=== PATIENT | female | born 1990 | race Hispanic/Latino ===

== ENCOUNTER 2023-11-07 20:42 | Emergency (ER) | payer OTHER ==
[~2023-11-07] VITALS: Ht 162.6 cm; Wt 77.1 kg
[2023-11-07 20:57] VITALS: BP 133/65; PULSE 74; RESP 18; TEMP 99.3
[2023-11-07] MEDS: DiphenhydrAMINE HCL 25 MG/10 ML ELIXIR UDCUP PO ONE (21:16)
[2023-11-07] MEDS: prednisoLONE 15 MG/5 ML SOLN PO STA (21:16)
[2023-11-07] MEDS ORDERED: PRED10TA23 PO (21:21)
[2023-11-07] MEDS ORDERED: CEPH500B PO (21:21)
== END 2023-11-07 21:44 | disposition home or self-care (01) ==
LOC: EDH 20:42
DX: L25.9 Unspecified contact dermatitis, unspecified cause (principal); Z79.2 Long term (current) use of antibiotics; Z79.899 Other long term (current) drug therapy
CPT/HCPCS: 81025

== ENCOUNTER 2024-07-02 11:30 | Observation (INO) | payer OTHER ==
[~2024-07-02] VITALS: Ht 162.6 cm; Wt 84.1 kg
[~2024-07-02 11:30] MED LIST: CEPH500B PO; PRED10TA23 PO
--- NOTE | 2024-07-02 11:40 | ERN ---
ED Note History of Present Illness Stated Complaint: LOWER ABD PAIN Chief Complaint: Abdominal Pain Time Seen by MD: 11:31 Dictation: PATIENT IS A 33-YEAR-OLD FEMALE COMING IN TODAY WITH COMPLAINTS OF RIGHT ADNEXAL/PELVIC PAIN SHE HAS HAD THAT HAS BEEN COLICKY ACHY FOR THE LAST THREE DAYS. SHE HAS HAD NAUSEA WITHOUT VOMITING NO FEVER NO CHILLS NO CHANGE IN URINATION. STATES HER LMP WAS AT THE END OF MAY. STATES SHE DOES HAVE A HISTORY OF OVARIAN CYST PATIENT OF DR. GOKUL Terrell HAS NOT BEEN TO SEE HER. Allergies: Coded Allergies: No Known Allergies (Unverified Allergy, Unknown, 11/07/23) Home Meds Active Scripts Cephalexin Monohydrate (Keflex) 500 Mg Cap, 500 MG PO BID for 7 Days, #14 CAP Prov:MICHELE SPENCE MD 11/07/23 Prednisone (Prednisone) 10 Mg Tab.ds.pk, 10 MG PO DAILY for 7 Days, #7 TAB Prov:MICHELE SPENCE MD 11/07/23 Past Medical History Past Medical History: No Pertinent History Surgical History: None History: Not Applicable LMP: June 11, 2024 : 1 Para: 1 RN Note Reviewed/Agreed w/PFSH: Yes Review of System Dictation CONSTITUTIONAL: NEGATIVE EXCEPT FOR HPI HEAD/FACE: NEGATIVE EXCEPT FOR HPI EENT: NEGATIVE EXCEPT FOR HPI RESPIRATORY: NEGATIVE EXCEPT FOR HPI GASTROINTESTINAL/ABDOMINAL: NEGATIVE EXCEPT FOR HPI RIGHT ADNEXAL/PELVIC PAIN WITH NAUSEA GENITOURINARY: NEGATIVE EXCEPT FOR HPI MUSCULOSKELETAL: NEGATIVE EXCEPT FOR HPI INTEGUMENTARY: NEGATIVE EXCEPT FOR HPI NEUROLOGICAL/PSYCH: NEGATIVE EXCEPT FOR HPI HEMATOLOGIC/LYMPHATIC: NEGATIVE EXCEPT FOR HPI ALL SYSTEMS NEGATIVE, EXCEPT NOTED ABOVE. 13 POINT REVIEW OF SYSTEMS ASSESSED AND ALL NEGATIVE EXCEPT FOR ABOVE. Initial Vital Sign VS Vital Signs Date Time Temp Pulse Resp B/P (MAP) Pulse Ox O2 Delivery O2 Flow Rate FiO2 07/02/24 11:34 98.1 65 16 109/67 96 Room Air 0 07/02/24 13:34 21 Physical Exam Dictation VITAL SIGNS REVIEWED GENERAL APPEARANCE: ALERT, ORIENTED X 3, MODERATE ACUTE DISTRESS, WELL DEVELOPED, NOURISHED. HEAD AND FACE: NON-TRAUMATIC. EYES: PERRL, PINK CONJUNCTIVAS, EYELID NO TRAUMA, ANTERIOR CHAMBER WITH ARCUS SENILIS. EARS: PINNAS INTACT AND NO SIGNS OF TRAUMA OR ERYTHEMA EAR CANALS CLEAR AND NO DISCHARGE TM NO ERYTHEMA NOSE: NO DISCHARGE, NO BLEEDING. OROPHARYNX: MOUTH NORMAL, TONGUE PINK, PHARYNX CLEAR,NO ERYTHEMA, TONSILS NO EXUDATES, NO ABSCESSES NOTED, MUCOUS MEMBRANE MOIST NECK: SUPPLE, NON-TENDER, NO THYROMEGALY, NO MASSES, NO JVD, NO BRUITS BREAST:DEFERRED CHEST:NO TENDERNESS, NO CREPITUS, NO PARADOXICAL MOVEMENT, NO RETRACTIONS LUNGS:CLEAR, WELL-VENTILATED, SYMMETRIC, NO RALES, NO WHEEZING, NO RHONCHI, NO STRIDOR, GOOD BREATH SOUNDS BILATERALLY HEART: REGULAR RATE, REGULAR RHYTHM, NO MURMUR, NO GALLOPS VASCULAR: NO PERIPHERAL EDEMA, ABDOMEN: SOFT, POSITIVE BOWEL SOUNDS, NONDISTENDED, NO GUARDING MILD RIGHT ADNEXAL/PELVIC PAIN TENDERNESS. REBOUND, NO REBOUND, NO MASSES NO HEPATOMEGALY, NO SPLENOMEGALY, NO FINNEY'S SIGN, NO HERNIAS. RECTAL: DEFERRED GENITAL: DEFERRED NEUROLOGICAL: NORMAL SPEECH, MOTOR FUNCTION INTACT, SENSORY FUNCTION INTACT MUSCULOSKELETAL: NECK NONTENDER, FULL RANGE OF MOTION, BACK NONTENDER, FULL RANGE OF MOTION, EXTREMITIES: NONTENDER, FULL RANGE OF MOTION SKIN: COLOR PINK, DRY, NO TURGOR, NO RASH, NO LACERATIONS, NO ABRASIONS, NO CONTUSIONS. LYMPHATIC: DEFERRED Results (Laboratory/Radiology) Laboratory/Radiology Laboratory Tests Test 07/02/24 11:49 07/02/24 12:11 Urine Color COLORLESS (YELLOW) Urine Appearance CLEAR (CLEAR) Urine pH 5.5 (5.0-8.0) Urine Specific [place] 1.005 (1.001-1.031) Urine Protein 20 mg/dL (NEGATIVE) H Urine Glucose (UA) NEGATIVE mg/dL (NEGATIVE) Urine Ketones NEGATIVE mg/dL (NEGATIVE) Urine Occult Blood NEGATIVE (NEGATIVE) Urine Nitrate NEGATIVE (NEGATIVE) Urine Bilirubin NEGATIVE mg/dL (NEGATIVE) Urine Urobilinogen 0.2 mg/dL (0.2-1.0) Urine Leukocyte Esterase NEGATIVE Ones[place]/uL Urine RBC 0-1 /HPF (0-1) Urine WBC 2-5 /HPF (0-1) H Urine Squamous Epithelial Cells RARE /HPF (0-2) Urine Bacteria None /HPF (None Seen) Urine HCG, Qualitative NEGATIVE (NEGATIVE) White Blood Count 8.9 K/uL (4.8-10.8) Red Blood Count 4.21 MIL/uL (4.00-5.50) Hemoglobin 13.1 g/dL (12.0-16.0) Hematocrit 38.9 % (36-48) Mean Corpuscular Volume 92.4 fL (79-99) Mean Corpuscular Hemoglobin 31.1 pg (27.0-33.0) Mean Corpuscular Hemoglobin Concent 33.7 g/dL (32.0-36.0) Red Cell Distribution Width 11.9 % (11.0-15.5) Platelet Count 188 K/uL (130-400) Mean Platelet Volume 11.2 fL (7.5-10.5) H Immature Granulocyte % (Auto) 0.3 % (0-1) Neutrophils (%) (Auto) 68.0 % (40.0-77.0) Lymphocytes (%) (Auto) 22.4 % (21.0-51.0) Monocytes (%) (Auto) 8.3 % (3.0-13.0) Eosinophils (%) (Auto) 0.6 % (0.0-8.0) Basophils (%) (Auto) 0.4 % (0.0-5.0) Neutrophils # (Auto) 6.1 K/uL (1.8-7.7) Lymphocytes # (Auto) 2.0 K/uL (1.0-4.8) Monocytes # (Auto) 0.7 K/uL (0.1-1.0) Eosinophils # (Auto) 0.05 K/uL (0.00-0.70) Basophils # (Auto) 0.04 K/uL (0.00-0.20) Absolute Immature Granulocyte (auto 0.03 K/uL (0-1) Nucleated Red Blood Cells 0.0 % (0.0-0.19) Sodium Level 138 mmol/L (136-145) Potassium Level 4.8 mmol/L (3.5-5.1) Chloride Level 105 mmol/L (101-111) Carbon Dioxide Level 24 mmol/L (21-32) Blood Urea Nitrogen 24 mg/dL (7-18) H Creatinine 2.8 mg/dL (0.5-1.0) H Glomerular Filtration Rate Calc 22 mL/min (>90) Random Glucose 86 mg/dL (70-105) Total Calcium 8.9 mg/dL (8.5-10.1) 1232/RIGHT OVARIAN CYST, 18 X 14 X 12. Signed PATIENT: MADINA HERRING MR#: [id number] : 1990 SEX: F AGE: 33 LOCATION: [facility] ORDER 1350 STATUS: REG ER REPORT#: [id number] SERVICE 1340 REASON: RIGHT LOWER ABDOMINAL PAIN. KNOWN OVARIAN CYST SEE ULTRASOUND REPORT ORDERING PHYSICIAN: NEISHA DURAN NP PROCEDURE: ABD PEL WO - CT ABDOMEN/PELVIS W/O CONTRAST CT ABDOMEN/PELVIS W/O CONTRAST HISTORY: Right lower abdominal pain COMPARISON: 03/09/2012 TECHNIQUE: Multiple sequential axial images of the abdomen and pelvis were obtained from the dome of the diaphragm through symphysis pubis. Patient was not given contrast through intravenous route. Oral contrast was not given. FINDINGS: No pleural effusion is seen bilaterally. There is no evidence of parenchymal disease or pulmonary nodule of the visualized lower lungs. Degenerative changes of the thoracolumbar spine are present. The heart is not enlarged. The liver, spleen, adrenal glands and pancreas are unremarkable. There is no evidence of hydronephrosis bilaterally. No evidence of renal stone is seen. Fecal material is seen in the colon. There are normal size retroperitoneal and mesenteric lymph nodes. No ascites is seen. No CT evidence of acute appendicitis is seen. There is right hemorrhagic ovarian cyst measuring 17 mm. Pelvic sidewalls are symmetric bilaterally. Bladder is well distended without wall thickening. IMPRESSION: 1. No acute findings. Labs Reviewed?: Yes ED Course ED Course Orders Procedure Category Date Status Time Cbc With Differential LAB 07/02/24 Complete 11:35 ,Urine Test LAB 07/02/24 Complete 11:35 Urinalysis Profile LAB 07/02/24 Complete 11:35 Us Pelvic Non-Ob US 07/02/24 Resulted Limited 11:35 Basic Metabolic Panel LAB 07/02/24 Complete 11:37 Morphine 2mg Syg PHA 07/02/24 Complete (Morphine 2mg Syg) 12:00 Ondansetron 4mg Inj PHA 07/02/24 Complete (Zofran 4mg Inj) 12:00 0.9%Nacl 1000ml (Ns PHA 07/02/24 Complete 1000ml) 13:00 Morphine 2mg Syg PHA 07/02/24 Complete (Morphine 2mg Syg) 13:00 Ondansetron 4mg Inj PHA 07/02/24 Complete (Zofran 4mg Inj) 13:00 Ct Abdomen/Pelvis W/O CT 07/02/24 Resulted Contrast 13:48 0.9%Nacl 1000ml (Ns PHA 07/02/24 Complete 1000ml) 16:00 Ketorolac PHA 07/02/24 Complete Tromethamine 30mg/Ml 18:00 Admit Orders ADM 07/02/24 Transmitted 19:09 Vital Signs Every 4 CPOE 07/02/24 Transmitted Hours 19:10 I&O Q Shift CPOE 07/02/24 Transmitted 19:10 Activity: Ad Jessie CPOE 07/02/24 Transmitted 19:10 Renal Nondialysis Diet DIET 07/03/24 Transmitted Breakfast O2 Order RT 07/02/24 Transmitted 19:10 Cbc Without LAB 07/03/24 Verified Differential 04:00 Basic Metabolic Panel LAB 07/03/24 Verified 04:00 Magnesium LAB 07/03/24 Verified 04:00 Phosphorus LAB 07/03/24 Verified 04:00 Thyroid Stimulating LAB 07/03/24 Verified Hormone 04:00 Lr 1000ml @____Ml/Hr PHA 07/02/24 Transmitted 19:30 Famotidine 20mg Tab PHA 07/02/24 Transmitted (Pepcid 20mg Tab) 21:00 Tylenol 650mg Po Q6hr PHA 07/02/24 Transmitted Fever 19:30 Tylenol 650mg Pr PHA 07/02/24 Transmitted Q6hrs Prn 19:30 [place] 5/325 Po Q6hrs PHA 07/02/24 Transmitted 19:30 Lactulose 30ml Q6hrs PHA 07/02/24 Transmitted PRN 19:30 Colace 100mg Po Daily PHA 07/02/24 Transmitted 19:30 Restoril 15mg Po Hs PHA 07/02/24 Transmitted PRN 19:30 Zofran 4mg Ivp Q6hrs PHA 07/02/24 Transmitted PRN 19:30 Labetalol 10mg Ivp PHA 07/02/24 Transmitted Q2hrs Prn 19:30 Heparin 5,000 Unit PHA 07/03/24 Transmitted Vial (Heparin 5,000 U 09:00 Current Medications Medications (Trade) Dose Ordered Sig/Keenan Route PRN Reason Start Time Stop Time Status Last Admin Dose Admin Acetaminophen (TYLenol 325MG TAB) 650 mg Q6H PRN PO FEVER/MILD PAIN LEVEL 1-3 07/02/24 19:30 08/01/24 19:29 UNV Acetaminophen (TYLenol 650MG SUPPOSITORY) 650 mg Q6H PRN RC FEVER / MILD PAIN 1-3 IF NPO 07/02/24 19:30 08/01/24 19:29 UNV Acetaminophen/ Hydrocodone Bitart (NORco 5/325MG) 1 tab Q6H PRN PO MILD PAIN (1-3) 07/02/24 19:30 07/07/24 19:29 UNV Docusate Sodium (COLace 100MG CAP) 100 mg BID PRN PO CONSTIPATION 07/02/24 19:30 08/01/24 19:29 UNV Famotidine (Pepcid 20mg Tab) 20 mg BID PO 07/02/24 21:00 08/01/24 20:59 UNV Heparin Sodium (Porcine) (HEParin 5,000 UNIT VIAL) 5,000 unit Q12H SQ 07/03/24 09:00 08/02/24 08:59 UNV Ketorolac Tromethamine (toRADol) 30 mg ONCE ONCE IVP 07/02/24 18:00 07/02/24 18:01 DC 07/02/24 17:42 Labetalol HCl (TRANdate 20MG SYG) 10 mg Q2H PRN IV SBP GREATER THAN 160 07/02/24 19:30 08/01/24 19:29 UNV Lactated Ringer's 1,000 ml @ 100 mls/hr Q10H IV 07/02/24 19:30 08/01/24 19:29 UNV Lactulose (Constulose 20gm/ 30ml Udcup) 20 gm Q6H PRN PO CONSTIPATION 07/02/24 19:30 08/01/24 19:29 UNV Morphine Sulfate (morPHINE 2MG SYG) 2 mg ONCE ONCE IVP 07/02/24 12:00 07/02/24 12:01 DC 07/02/24 11:47 Morphine Sulfate (morPHINE 2MG SYG) 2 mg ONCE ONCE IVP 07/02/24 13:00 07/02/24 13:03 DC 07/02/24 13:47 Ondansetron HCl (zoFRAN 4MG INJ) 4 mg ONCE ONCE IVP 07/02/24 12:00 07/02/24 12:01 DC 07/02/24 11:47 Ondansetron HCl (zoFRAN 4MG INJ) 4 mg ONCE ONCE IVP 07/02/24 13:00 07/02/24 13:03 DC 07/02/24 13:46 Ondansetron HCl (zoFRAN 4MG INJ) 4 mg Q6H PRN IVP NAUSEA/VOMITING 07/02/24 19:30 08/01/24 19:29 UNV Sodium Chloride 1,000 ml @ 0 mls/hr ONCE ONCE IV 07/02/24 13:00 07/02/24 13:03 DC 07/02/24 13:46 Sodium Chloride 1,000 ml @ 0 mls/hr ONCE ONCE IV 07/02/24 16:00 07/02/24 16:01 DC 07/02/24 17:22 Temazepam (restORIL 15 MG CAP) 15 mg HS PRN PO INSOMNIA/SLEEP 07/02/24 19:30 08/01/24 19:29 UNV Vital Signs Date Time Temp Pulse Resp B/P (MAP) Pulse Ox O2 Delivery O2 Flow Rate FiO2 07/02/24 17:31 98.8 57 14 123/74 96 Room Air* 0 21 07/02/24 13:34 98.1 68 16 110/66 98 Room Air* 0 21 07/02/24 11:34 98.1 65 16 109/67 96 Room Air 0 1250/SPOKE WITH PATIENT AT LENGTH REGARDING HER ACUTE KIDNEY INJURY SHE HAD LABS FROM HER DOCTOR IN [place] FROM MARCH 2024 AND IT SHOWS HE HAS A GFR OF 88%. GFR TODAY IS 22 SHE DENIES ANY HEMATEMESIS HEMATOCHEZIA HEMOPTYSIS EXCESSIVE VOMITING DIARRHEA DIURETICS. SHE STATES SHE HAS BEEN FEELING FATIGUED FOR THE LAST TWO WEEKS. SHE HAS ALSO HAD SOME UNEXPLAINED WEIGHT GAIN. SHE AGREED TO BE ADMITTED TO THE [facility]OSP[facility] FOR [facility] AND NEPHROLOGY FOLLOW UP 1350/SPOKE WITH HOSPITALIST, DR. ECHEVERRIA REGARDING ADMISSION. HE STATES IN LIGHT OF THE POSSIBLE HEMORRHAGIC OVARIAN CYST AND THE [facility], SINCE WE HAVE NO BE IN CHAIR COVERAGE IF PATIENT WOULD BE IT NEED TO BE ADMITTED TO A HIGHER LEVEL OF CARE FOR OB SERVICES. 1455/SPOKE WITH REVIEWED LABS CT AND ULTRASOUND FINDINGS. SHE SAID THIS IS A OVULATORY CYST SHE SAID IT IS INCONSEQUENTIAL AND DOES NOT REQUIRED ANYTHING OTHER THAN OUTPATIENT MANAGEMENT AND SHE CAN FOLLOW UP IN HER OFFICE. SHE DOES NOT BELIEVE SHE NEEDS TO BE TRANSFERRED TO A HIGHER LEVEL OF CARE AND THIS COULD BE MANAGED P.R.N. ANALGESIA 148/DR ECHEVERRIA REPAGED FOR ADMISSION, RECOMMENDED PATIENT BE TRANSFERRED TO A HIGHER LEVEL OF CARE WITH ALARM SIGNAL OPERATOR SUPPORT [facility] FOR [facility] 1640/SPOKE WITH Rhea HERNANDEZ material control supervisor and we will follow up for transfer to higher level of care 1915/SPOKE WITH OLY LARA HOSPITALIST AND REVIEWED CT ULTRASOUND AND LABS AND SHE AGREED TO ADMIT PATIENT. SHE IS AWARE THAT I SPOKE WITH THE ALARM SIGNAL OPERATOR DOCTOR AND THE CYST DID NOT REPRESENT AN EMERGENT CONDITION. Medical Decision Making MDM MDM: DIFFERENTIAL DIAGNOSIS: APPENDICITIS/OVARIAN CYST/UTI/ECTOPIC /ELECTROLYTE IMBALANCE/DEHYDRATION RATIONALE: TESTS CONSIDERED AND ORDERED SECONDARY TO SHARED DECISION MAKING INCLUDE: LABS, AND RADIOLOGY PREVIOUS OUTSIDE RECORDS REVIEWED: OLD ER VISITS. RISK OF COMPLICATION AND/OR MORBIDITY OR MORTALITY OF PATIENT MANAGEMENT: [id number] MEDICATIONS-PER MEDICATION RECONCILIATION NEED FOR HOSPITALIZATION: PATIENT DOES MEET CRITERIA FOR HOSPITALIZATION. WE WILL NEED REHYDRATION AND NEPHROLOGY CONSULTATION FOR [facility] NEED FOR EMERGENCY MAJOR/MINOR SURGERY: NO THERE ARE NO SOCIAL CONCERNS WITH THIS PATIENT. PRESCRIPTION DRUG MANAGEMENT PRESCRIPTIONS WILL INCLUDE SYMPTOMATIC CARE PATIENT'S PRIOR EXTERNAL MEDICAL RECORDS FROM OTHER ER VISITS WERE REVIEWED BY ME INDICATED. PRIOR TESTING AND RESULTS FROM PREVIOUS VISITS WERE REVIEWED. PRIOR TESTS WERE TAKEN INTO ACCOUNT WITH MEDICAL DECISION MAKING AND RESOURCE UTILIZATION, INDEPENDENT HISTORIAN/HISTORIANS WERE USED TO OBTAIN COMPLETE MEDICAL HISTORY. I INDEPENDENTLY INTERPRETED THE TEST THAT WERE PERFORMED, RESULTS WERE REVIEWED BY ME AND CONSIDERED FINDINGS ON RADIOLOGY IF ORDERED. MEDICAL MANAGEMENT AND EXAMINATION INTERPRETATION DISCUSSIONS WERE HAD BY ME WITH OTHER QUALIFIED HEALTHCARE PROFESSIONALS INDICATED FOR THE PATIENT'S CARE. DX & DISP Disposition: Inpatient Decision to Admit Time: 12:56 Departure Impression: Primary Impression: Acute kidney injury Additional Impressions: Dehydration, Right ovarian cyst Condition: Stable Referrals: SELF,REFERRAL (PCP) Time of Disposition: 12:56 I have reviewed the case, and I agree with, Diagnosis and Plan NEISHA DURAN NP July 02, 2024 11:40
[2024-07-02] MEDS: ondanSETRON 4MG INJ IVP ONE ×2 (11:47→13:46)
[2024-07-02] MEDS: morPHINE 2 MG SYG IVP ONE ×2 (11:47→13:47)
[2024-07-02 12:07] LABS: APPEARANCE,URINE CLEAR (CLEAR); BILIRUBIN,URINE NEGATIVE (NEGATIVE); COLOR,URINE COLORLESS (YELLOW); GLUCOSE, URINE (UA) NEGATIVE (NEGATIVE); KETONES,URINE NEGATIVE (NEGATIVE); LEUKOCYTE ESTERASE ,URINE NEGATIVE Leu/uL (NEGATIVE); NITRATE,URINE NEGATIVE (NEGATIVE); OCCULT BLOOD,URINE NEGATIVE (NEGATIVE); PH,URINE 5.5 (5.0-8.0); PROTEIN,URINE 20 mg/dL (NEGATIVE); UROBILINOGEN,URINE 0.2 mg/dL (0.2-1.0)
[2024-07-02 12:09] LABS: HCG,QUALITATIVE URINE NEGATIVE (NEGATIVE)
[2024-07-02 12:13] LABS: ADD UA MICROSCOPIC YES
[2024-07-02 12:23] LABS: BASOPHILS # (AUTO) 0.04 K/uL (0.00-0.20); BASOPHILS % (AUTO) 0.4 % (0.0-5.0); EOSINOPHILS # (AUTO) 0.05 K/uL (0.00-0.70); EOSINOPHILS % (AUTO) 0.6 % (0.0-8.0); HEMATOCRIT 38.9 % (36-48); IMMATURE GRANULOCYTE ABSOLUTE 0.03 K/uL (0-1); LYMPHOCYTES % (AUTO) 22.4 % (21.0-51.0); MEAN CORPUSCULAR HEMOGLOBIN 31.1 pg (27.0-33.0); MEAN CORPUSCULAR HGB CONC 33.7 g/dL (32.0-36.0); MEAN CORPUSCULAR VOLUME 92.4 fL (79-99); MONOCYTES # (AUTO) 0.7 K/uL (0.1-1.0); MONOCYTES % (AUTO) 8.3 % (3.0-13.0); NEUTROPHILS # (AUTO) 6.1 K/uL (1.8-7.7); PLATELET COUNT (AUTO) 188 K/uL (130-400); RED BLOOD CELL COUNT(AUTO) 4.21 MIL/uL (4.00-5.50); RED CELL DISTRIBUTION WIDTH 11.9 % (11.0-15.5); WHITE BLOOD COUNT (AUTO) 8.9 K/uL (4.8-10.8)
[2024-07-02 12:24] LABS: RBC,URINE 0-1 /HPF (0-1); SQUAMOUS EPITHELIAL CELL,UR RARE /HPF (0-2)
[2024-07-02 12:34] LABS: CREATININE 2.8 mg/dL (0.5-1.0); POTASSIUM 4.8 mmol/L (3.5-5.1)
--- NOTE | 2024-07-02 12:41 | HMCIMG ---
US PELVIC NON-OB LIMITED HISTORY: Right adnexal pain COMPARISON: None TECHNIQUE: Transabdominal pelvic ultrasound study was performed. Specific attention is given to the right ovary. FINDINGS: There is complex cystic structure in the right ovary measuring 18 x 14 x 14 mm may be related to hemorrhagic cyst. Right ovary measures 2.5 x 2 x 3.2 cm. Flow is demonstrated in the right ovary. IMPRESSION: 1. There may be right hemorrhagic ovarian cyst measuring 18 x 14 x 14 mm.
[2024-07-02] MEDS: 0.9%NACL 1000ML 1,000 ML IV ONE ×2 (13:46→17:22)
--- NOTE | 2024-07-02 14:05 | NUR ---
PENDING FAMILY TO BRING MEDICATIONS FROM HOME.
--- NOTE | 2024-07-02 14:43 | HMCIMG ---
CT ABDOMEN/PELVIS W/O CONTRAST HISTORY: Right lower abdominal pain COMPARISON: 03/09/2012 TECHNIQUE: Multiple sequential axial images of the abdomen and pelvis were obtained from the dome of the diaphragm through symphysis pubis. Patient was not given contrast through intravenous route. Oral contrast was not given. FINDINGS: No pleural effusion is seen bilaterally. There is no evidence of parenchymal disease or pulmonary nodule of the visualized lower lungs. Degenerative changes of the thoracolumbar spine are present. The heart is not enlarged. The liver, spleen, adrenal glands and pancreas are unremarkable. There is no evidence of hydronephrosis bilaterally. No evidence of renal stone is seen. Fecal material is seen in the colon. There are normal size retroperitoneal and mesenteric lymph nodes. No ascites is seen. No CT evidence of acute appendicitis is seen. There is right hemorrhagic ovarian cyst measuring 17 mm. Pelvic sidewalls are symmetric bilaterally. Bladder is well distended without wall thickening. IMPRESSION: 1. No acute findings. CT was performed with one or more following dose reduction techniques: automated exposure control, adjustment of the mA and kv according to patient's size, or use of a iterative reconstruction technique.
[2024-07-02] MEDS: ketOROlac 30MG VIAL (30MG/ML) IVP ONE (17:42)
--- NOTE | 2024-07-02 19:19 | HP ---
[facility] HISTORY AND PHYSICAL Date of Service: July 02, 2024 Time of Service: 19:19 Attending/supervising physicians: Dr. Finley and Dr. Gómez HISTORY OF PRESENT ILLNESS: Ms. Robbins is a 33-year-old female with a history of migraine headaches and ovarian cyst who presented to [facility] ED for evaluation of a right lower and upper abdominal pain that radiates to the back onset three days. The patient reports he feels colicky and achy. The patient also reported being fatigued for at least two weeks. The patient stated that she had some unexplained weight gain. Patient denies nausea, but denies vomiting, fever, chills, changes in urination. The patient reports that she has been drinking fluids well. She drinks about 3/4 of a gal per day, but has not been eating well due to the nausea. The patient has a history of ovarian cyst and follows with Dr. Renee. WBCs WNL. Remarkable lab results: MPV 11.2. BUN , creatinine 2.8, GFR . 22. UA positive for protein, WBCs 2-5. Urine toxicology is positive for benzos. CT abdomen and pelvis without contrast: Right hemorrhagic ovarian cyst measuring 17mm. No acute findings. Pelvis sonogram: Right hemorrhagic ovarian cyst measuring 8 x 14 x 14 mm. Renal sonogram: Normal sonographic appearance of the kidneys and urinary bladder. The patient has lab work from her doctor in [place] from March 2024 in it showed a GFR of 88. Today's GFR is 22 which prompted ED provider to request patient be admitted to the hospital for further medical management. ED provider reports that he spoke to Dr. Renee who stated that this is a ovulatory cyst, and that it is inconsequential. He reports that she stated that it does not require any other that outpatient management and that the patient can follow up with her in the office. He states that she reported that the patient does not need to be transferred out to a higher level of care and that this could be managed with prn analgesia. In ED the patient received morphine 2 mg x2 doses, Zofran 4 mg IV x2 doses, NS 2 L bolus, and Toradol 30 mg IV. ED provider request patient be admitted with the diagnosis of acute kidney injury, dehydration, and right ovarian cyst. Per chart review: On 02/27/2012 GFR was 85, 03/09/2012 GFR 75, 12/30/2012 GFR 74, 07/27/2013 GFR 96. I assessed the patient at bedside in room number ED 12. The patient appeared comfortable, breathing was even, unlabored, in no distress. She reported that she has taken hydroxyzine and propranolol for headaches since February of last year. Otherwise she denies taking any NSAIDs or any other medications. I informed the patient of labs, diagnostics, and plan of care. She verbalized understanding and is in agreement with the plan. Plan and assessment are listed below. Addendum: Since UA is positive for benzos and the patient reported that she is only taking hydroxyzine and propranolol, the patient was informed that her urine was positive for benzos. She then admitted to taking Xanax from [place] but does not want her family to know because they do not approve it. She also reported that she was taking Tirzepatide 0.75 ml, but stopped last week. Which might explain lying the anorexia and weight gain. REVIEW OF SYSTEMS 12-point ROS reviewed with the patient. All pertinent positives mentioned above. Otherwise negative, noncontributory, non-pertinent. PAST MEDICAL HISTORY: As mentioned above LMP June 11, 2024. 1, para 1. PAST SURGICAL HISTORY: None PAST SOCIAL HISTORY: Patient denied alcohol, tobacco use, illicit drug use. FAMILY HISTORY: Noncontributory Coded Allergies: No Known Allergies (Unverified Allergy, Unknown, 11/07/23) PHYSICAL EXAM GENERAL APPEARANCE: The patient is awake, alert, and oriented, in no acute cardiopulmonary distress. NEUROLOGICAL: Cranial nerves II-XII grossly intact. Motor is 5/5 in bilateral upper and lower extremities proximal to distal. No sensory deficits. HEENT: Face is symmetric. Pupils are equal and reactive. Extraocular movements are intact. NECK: Supple. No JVD. No thyromegaly. No submental, submandibular, pre- /postauricular, occipital or supraclavicular lymphadenopathy. CHEST: Normal chest expansion. No Telemetry. LUNGS: Absence of any rales, rhonchi or any wheezing. CARDIOVASCULAR: Regular. S1 and S2 normal. No appreciable rubs, murmurs or gallops. ABDOMEN: Soft, nontender, and nondistended. There is no rebound, voluntary guarding, or rigidity. : Deferred. No Boyd. EXTREMITIES: Non-edematous and not cyanotic. No clubbing. Good capillary refill. SKIN: No skin breakdown. Vital Sign (Last 24 Hours) 07/02/24 17:31 Temp 98.8 Pulse 57 Resp 14 B/P (MAP) 123/74 Pulse Ox 96 O2 Delivery Room Air* O2 Flow Rate 0 FiO2 21 LABS: Laboratory: Test 07/02/24 12:11 07/02/24 11:49 Range/Units White Blood Count 8.9 4.8-10.8 K/uL Red Blood Count 4.21 4.00-5.50 MIL/uL Hemoglobin 13.1 12.0-16.0 g/dL Hematocrit 38.9 36-48 % Mean Corpuscular Volume 92.4 79-99 fL Mean Corpuscular Hemoglobin 31.1 27.0-33.0 pg Mean Corpuscular Hemoglobin Concent 33.7 32.0-36.0 g/dL Red Cell Distribution Width 11.9 11.0-15.5 % Platelet Count 188 130-400 K/uL Mean Platelet Volume 11.2 H 7.5-10.5 fL Immature Granulocyte % (Auto) 0.3 0-1 % Neutrophils (%) (Auto) 68.0 40.0-77.0 % Lymphocytes (%) (Auto) 22.4 21.0-51.0 % Monocytes (%) (Auto) 8.3 3.0-13.0 % Eosinophils (%) (Auto) 0.6 0.0-8.0 % Basophils (%) (Auto) 0.4 0.0-5.0 % Neutrophils # (Auto) 6.1 1.8-7.7 K/uL Lymphocytes # (Auto) 2.0 1.0-4.8 K/uL Monocytes # (Auto) 0.7 0.1-1.0 K/uL Eosinophils # (Auto) 0.05 0.00-0.70 K/uL Basophils # (Auto) 0.04 0.00-0.20 K/uL Absolute Immature Granulocyte (auto 0.03 0-1 K/uL Nucleated Red Blood Cells 0.0 0.0-0.19 % Sodium Level 138 136-145 mmol/L Potassium Level 4.8 3.5-5.1 mmol/L Chloride Level 105 101-111 mmol/L Carbon Dioxide Level 24 21-32 mmol/L Blood Urea Nitrogen 24 H 7-18 mg/dL Creatinine 2.8 H 0.5-1.0 mg/dL Glomerular Filtration Rate Calc 22 >90 mL/min Random Glucose 86 70-105 mg/dL Total Calcium 8.9 8.5-10.1 mg/dL Urine Color COLORLESS YELLOW Urine Appearance CLEAR CLEAR Urine pH 5.5 5.0-8.0 Urine Specific [place] 1.005 1.001-1.031 Urine Protein 20 H NEGATIVE mg/dL Urine Glucose (UA) NEGATIVE NEGATIVE mg/dL Urine Ketones NEGATIVE NEGATIVE mg/dL Urine Occult Blood NEGATIVE NEGATIVE Urine Nitrate NEGATIVE NEGATIVE Urine Bilirubin NEGATIVE NEGATIVE mg/dL Urine Urobilinogen 0.2 0.2-1.0 mg/dL Urine Leukocyte Esterase NEGATIVE NEGATIVE Onesimo/uL Urine RBC 0-1 0-1 /HPF Urine WBC 2-5 H 0-1 /HPF Urine Squamous Epithelial Cells RARE 0-2 /HPF Urine Bacteria None None Seen /HPF Urine HCG, Qualitative NEGATIVE NEGATIVE DIAGNOSTICS / RADIOLOGY: [ ] ASSESSMENT: Acute kidney injury, GFR 22 Acute on chronic kidney disease, POA, GFR 88 on 03/2024. (02/27/2012 GFR was 85, 03/09/2012 GFR 75, 12/30/2012 GFR 74, 07/27/2013 GFR 96) Anorexia, POA, suspect from Tirzepatide Right hemorrhagic ovarian cyst measuring 8 x 14 x 14 mm, per sono on 07/02/2024, will be managed as out patient per Dr. Renee, OBGYN Benzodiazepine positive screen on UA 07/02/2024 (Takes Xanax from [place]) History of migraine headaches on propranolol and hydroxyzine since 02/2023 Obesity, BMI 31.8 History of anxiety PLAN: Admit to medical floor. Obtain a renal sonogram which was negative. LR at 100 mL/hr. (ED administered NS 2 L.) Monitor renal and liver function. Keep the patient in a euvolemic state. Avoid Nephrotoxic medications. Adjust medications according to renal function. Consult raise drill operator in a.m.. Monitor electrolytes and treat accordingly. Hold home medication hydroxyzine due to in rare cases it has been associated with the acute kidney failure. Hold home medication propranolol due to that it could in directly affect kidneys function by lowering blood pressure, which may reduced blood flow to the kidneys. Hold home medication Tirzepatide due to it having been linked to rare cases of CANDIS, where the kidney sudden lose her ability to filter ways. Education on 1. Informing providers of every medication she is taking. 2. Don't buy [id number] medications from [place] without informing her PCP 1st. 3. Avoid nephrotoxic medications. P.r.n. medications for: Pain management, fever, nausea, vomiting, constipation, hypertension. As needed glucometer sticks. Oxygen as needed to keep SpO2 equal to greater than 92%. Blood pressure checks every 4 hours and as needed. GI and DVT prophylaxis. A.m. labs. Upon discharge follow up with Nephrology for acute on chronic kidney disease and OBGYN for ovarian cyst. ADVANCED CARE PLANNING 1. Which of the following were discussed? Hospice Care - No Therapeutic options - Yes Advance Directives - Yes Other discussions - 2. Discussed with who? Patient 3. Voluntary nature of this service was explained to the patient? Yes 4. Amount of time spent - __ over 45 minutes 5. Reviewed by Physician? (if this service was performed by NPP) Yes I personally spent over 45 minutes of directly and personally managing the patient. I devoted my full attention to the patient during this time, which is separate from time spent on any billable procedures. This includes time spent involved in work directly related to the care of the patient: such as review of prior records, development of treatment plan with patient and as well as nursing, ordered consultants, evaluation of patient's response to treatment, examination of patient, obtaining history from patient, ordering and performing treatments and interventions, ordering and review of laboratory studies, ordering and review of radiographic studies. ATTESTATION BY PHYSICIAN I have seen and examined the patient. I reviewed the documentation, medical decision making, and treatment plan as noted by the mid-level provider above. I agree with the findings and plan of care. JACQUI BUCK [facility] July 02, 2024 19:19
[2024-07-02] MEDS ORDERED: LAbetaLOL 20MG SYG IV PRN (19:30)
[2024-07-02] MEDS ORDERED: doCUSate SODIUM 100 MG CAP PO PRN (19:30)
[2024-07-02] MEDS ORDERED: acetaMINOPHEN 650 MG SUPPOSITORY RC PRN (19:30)
[2024-07-02] MEDS ORDERED: acetaMINOPHEN 325 MG TAB PO PRN (19:30)
[2024-07-02] MEDS ORDERED: LACTULOSE 20 GM/30 ML UDCUP PO PRN (19:30)
[2024-07-02] MEDS: LACTATED RINGERS 1000ML 1,000 ML IV SCH (19:54)
[2024-07-02] MEDS: FAMOTIDINE 20MG TAB PO SCH (19:54)
[2024-07-02 20:00] LABS: AMPHET/METH SCREEN,URINE NEGATIVE (NEGATIVE); BARBITURATE SCREEN, URINE NEGATIVE (NEGATIVE); BENZODIAZEPINES SCREEN,URINE POSITIVE (NEGATIVE); CANNABINOID SCREEN,URINE NEGATIVE (NEGATIVE); COCAINE SCREEN,URINE NEGATIVE (NEGATIVE); OPIATE SCREEN,URINE NEGATIVE (NEGATIVE); PHENCYCLIDINE SCREEN,URINE NEGATIVE (NEGATIVE)
--- NOTE | 2024-07-02 20:01 | HMCIMG ---
ULTRASOUND RENAL COMPLETE INDICATION: Acute kidney injury TECHNIQUE: Routine ultrasound of the kidneys and urinary bladder with grayscale and color Doppler imaging was performed in real-time, and subsequently made available for review. COMPARISON: No prior studies available for comparison. FINDINGS: The right kidney measures 12.0 x 4.8 x 5.5 cm. No abnormal mass demonstrated. No evidence for hydronephrosis or shadowing stone. The left kidney measures 11.8 x 4.5 x 5.1 cm. No abnormal mass demonstrated. No evidence for hydronephrosis or shadowing stone. Urinary bladder appears normal. IMPRESSION: Normal sonographic appearance of the kidneys and urinary bladder.
[2024-07-02] MEDS ORDERED: HYDR-3422 PO (20:08)
[2024-07-02] MEDS ORDERED: PROP40TA7 PO (20:08)
[2024-07-02] MEDS: HYDROcodone/APAP 5/325 1 TAB TABLET PO PRN (20:50)
--- NOTE | 2024-07-02 21:14 | NUR ---
sbar given to lazara frias
[2024-07-02 21:30] VITALS: O2SAT 96
[2024-07-02 21:35] VITALS: BP 110/58; PULSE 58; RESP 19; TEMP 98.3
[2024-07-02 22:33] LABS: HEMATOCRIT 35.4 % (36-48); MEAN CORPUSCULAR HEMOGLOBIN 30.8 pg (27.0-33.0); MEAN CORPUSCULAR HGB CONC 33.1 g/dL (32.0-36.0); MEAN CORPUSCULAR VOLUME 93.2 fL (79-99); RED BLOOD CELL COUNT(AUTO) 3.8 MIL/uL (4.00-5.50); WHITE BLOOD COUNT (AUTO) 7.7 K/uL (4.8-10.8)
[2024-07-02 23:00] LABS: ALBUMIN 3.2 g/dL (3.5-5.0); BILIRUBIN,TOTAL 0.6 mg/dL (0.2-1.0); CREATININE 2.9 mg/dL (0.5-1.0); MAGNESIUM 2.1 mg/dL (1.80-2.40); POTASSIUM 4.1 mmol/L (3.5-5.1); TOTAL PROTEIN, SERUM 6.1 g/dL (6.0-8.3)
[2024-07-03] VITALS (9 sets, daily range): BP systolic 90–118; BP diastolic 47–76; PULSE 51–68; RESP 16–20; TEMP 97.5–98.3; O2SAT 98–100
[2024-07-03] MEDS: HYDROcodone/APAP 5/325 1 TAB TABLET PO ONE (01:21)
[2024-07-03 03:54] LABS: HEMATOCRIT 31.8 % (36-48); MEAN CORPUSCULAR HEMOGLOBIN 31.4 pg (27.0-33.0); MEAN CORPUSCULAR HGB CONC 33.6 g/dL (32.0-36.0); MEAN CORPUSCULAR VOLUME 93.3 fL (79-99); RED BLOOD CELL COUNT(AUTO) 3.41 MIL/uL (4.00-5.50); RED CELL DISTRIBUTION WIDTH 11.9 % (11.0-15.5); WHITE BLOOD COUNT (AUTO) 6.8 K/uL (4.8-10.8)
[2024-07-03 04:12] LABS: HEMOGLOBIN A1C 5.1 % (4.0-6.0)
[2024-07-03 04:18] LABS: CREATININE 2.9 mg/dL (0.5-1.0); PHOSPHORUS 5.1 mg/dL (2.5-4.9); POTASSIUM 4.1 mmol/L (3.5-5.1); THYROID STIMULATING HORMONE 2.21 uIU/mL (0.36-3.74)
[2024-07-03] MEDS ORDERED: ALPR0.25 PO (04:30)
[2024-07-03] MEDS ORDERED: TIRZ2.5P SQ (04:30)
[2024-07-03] MEDS: HYDROcodone/APAP 5/325 1 TAB TABLET PO PRN (08:19)
[2024-07-03] MEDS: HEParin 5,000 UNIT VIAL SQ SCH (09:00)
--- NOTE | 2024-07-03 13:37 | PN ---
[facility] PROGRESS NOTE Date of Service: July 03, 2024 Time of Service: 13:20 SUBJECTIVE: [33-year-old female presented to the emergency department yesterday with pelvic pain. The initial imaging/CT abdomen and pelvis without contrast showed right hemorrhagic ovarian cyst measuring 17 mm, pelvic sonogram right hemorrhagic ovarian cyst and renal sonogram was unremarkable. Her pain has markedly improved on this evaluation. Plan is repeat transvaginal/pelvic ultrasound now. We will continue to monitor her kidney function continue with IV fluids. ] REVIEW OF SYSTEMS 12-point ROS reviewed with the patient. All pertinent positives mentioned above. Otherwise negative, noncontributory, non-pertinent. PHYSICAL EXAM GENERAL APPEARANCE: The patient is awake, alert, and oriented, in no acute cardiopulmonary distress. NEUROLOGICAL: Cranial nerves II-XII grossly intact. Motor is 5/5 in bilateral upper and lower extremities proximal to distal. No sensory deficits. HEENT: Face is symmetric. Pupils are equal and reactive. Extraocular movements are intact. NECK: Supple. No JVD. No thyromegaly. No submental, submandibular, pre- /postauricular, occipital or supraclavicular lymphadenopathy. CHEST: Normal chest expansion. No Telemetry. LUNGS: Absence of any rales, rhonchi or any wheezing. CARDIOVASCULAR: Regular. S1 and S2 normal. No appreciable rubs, murmurs or gallops. ABDOMEN: Soft, nontender, and nondistended. There is no rebound, voluntary guarding, or rigidity. : Deferred. No Boyd. EXTREMITIES: Non-edematous and not cyanotic. No clubbing. Good capillary refill. SKIN: No skin breakdown. Vital Signs (last 8hr) Date Time Temp Pulse Resp B/P (MAP) Pulse Ox O2 Delivery O2 Flow Rate FiO2 07/03/24 08:18 100 Room Air* 0 21 07/03/24 08:00 97.9 53 16 108/71 100 Room Air 21 LABS: Laboratory: Test 07/03/24 03:21 07/02/24 22:17 07/02/24 12:11 07/02/24 11:49 Range/Units White Blood Count 6.8 4.8-10.8 K/uL Red Blood Count 3.41 L 4.00-5.50 MIL/uL Hemoglobin 10.7 L 12.0-16.0 g/dL Hematocrit 31.8 L 36-48 % Mean Corpuscular Volume 93.3 79-99 fL Mean Corpuscular Hemoglobin 31.4 27.0-33.0 pg Mean Corpuscular Hemoglobin Concent 33.6 32.0-36.0 g/dL Red Cell Distribution Width 11.9 11.0-15.5 % Platelet Count 147 130-400 K/uL Mean Platelet Volume 10.7 H 7.5-10.5 fL Nucleated Red Blood Cells 0.0 0.0-0.19 % Sodium Level 140 136-145 mmol/L Potassium Level 4.1 3.5-5.1 mmol/L Chloride Level 108 101-111 mmol/L Carbon Dioxide Level 24 21-32 mmol/L Blood Urea Nitrogen 23 H 7-18 mg/dL Creatinine 2.9 H 0.5-1.0 mg/dL Glomerular Filtration Rate Calc 21 >90 mL/min Random Glucose 84 70-105 mg/dL Hemoglobin A1c 5.1 4.0-6.0 % Estimated Average Glucose (eAG) 100 70-126 mg/dL Total Calcium 7.8 L 8.5-10.1 mg/dL Phosphorus Level 5.1 H 2.5-4.9 mg/dL Magnesium Level 2.00 1.80-2.40 mg/dL Thyroid Stimulating Hormone (TSH) 2.21 0.36-3.74 uIU/mL Total Bilirubin 0.6 0.2-1.0 mg/dL Aspartate Amino Transf (AST/SGOT) 18 10-37 U/L Alanine Aminotransferase (ALT/SGPT) 27 12-78 U/L Alkaline Phosphatase 60 50-136 U/L Total Creatine Kinase 56 21-232 U/L Total Protein 6.1 6.0-8.3 g/dL Albumin 3.2 L 3.5-5.0 g/dL Immature Granulocyte % (Auto) 0.3 0-1 % Neutrophils (%) (Auto) 68.0 40.0-77.0 % Lymphocytes (%) (Auto) 22.4 21.0-51.0 % Monocytes (%) (Auto) 8.3 3.0-13.0 % Eosinophils (%) (Auto) 0.6 0.0-8.0 % Basophils (%) (Auto) 0.4 0.0-5.0 % Neutrophils # (Auto) 6.1 1.8-7.7 K/uL Lymphocytes # (Auto) 2.0 1.0-4.8 K/uL Monocytes # (Auto) 0.7 0.1-1.0 K/uL Eosinophils # (Auto) 0.05 0.00-0.70 K/uL Basophils # (Auto) 0.04 0.00-0.20 K/uL Absolute Immature Granulocyte (auto 0.03 0-1 K/uL Urine Color COLORLESS YELLOW Urine Appearance CLEAR CLEAR Urine pH 5.5 5.0-8.0 Urine Specific [place] 1.005 1.001-1.031 Urine Protein 20 H NEGATIVE mg/dL Urine Glucose (UA) NEGATIVE NEGATIVE mg/dL Urine Ketones NEGATIVE NEGATIVE mg/dL Urine Occult Blood NEGATIVE NEGATIVE Urine Nitrate NEGATIVE NEGATIVE Urine Bilirubin NEGATIVE NEGATIVE mg/dL Urine Urobilinogen 0.2 0.2-1.0 mg/dL Urine Leukocyte Esterase NEGATIVE NEGATIVE [place]/uL Urine RBC 0-1 0-1 /HPF Urine WBC 2-5 H 0-1 /HPF Urine Squamous Epithelial Cells RARE 0-2 /HPF Urine Bacteria None None Seen /HPF Urine HCG, Qualitative NEGATIVE NEGATIVE Urine Opiates Screen NEGATIVE NEGATIVE Urine Barbiturates Screen NEGATIVE NEGATIVE Urine Phencyclidine Screen NEGATIVE NEGATIVE Urine Amphetamines Screen NEGATIVE NEGATIVE Urine Benzodiazepines Screen POSITIVE H NEGATIVE Urine Cocaine Screen NEGATIVE NEGATIVE Urine Marijuana (THC) Screen NEGATIVE NEGATIVE Current Medications Medications (Trade) Dose Ordered Sig/Keenan Route PRN Reason Start Time Stop Time Status Last Admin Dose Admin Acetaminophen (TYLenol 325MG TAB) 650 mg Q6H PRN PO FEVER/MILD PAIN LEVEL 1-3 07/02/24 19:30 08/01/24 19:29 Acetaminophen (TYLenol 650MG SUPPOSITORY) 650 mg Q6H PRN RC FEVER / MILD PAIN 1-3 IF NPO 07/02/24 19:30 08/01/24 19:29 Acetaminophen/ Hydrocodone Bitart (NORco 5/325MG) 1 tab Q6H PRN PO MODERATE PAIN (4-6) 07/02/24 19:30 07/07/24 19:29 07/02/24 20:50 1 TAB Acetaminophen/ Hydrocodone Bitart (NORco 5/325MG) 2 tab Q6H PRN PO PAIN LEVEL 7 TO 10 07/03/24 00:00 07/08/24 00:00 07/03/24 08:19 2 TAB Docusate Sodium (COLace 100MG CAP) 100 mg BID PRN PO CONSTIPATION 07/02/24 19:30 08/01/24 19:29 Famotidine (Pepcid 20mg Tab) 20 mg DAILY PO 07/02/24 21:00 08/01/24 20:59 07/03/24 08:18 20 MG Heparin Sodium (Porcine) (HEParin 5,000 UNIT VIAL) 5,000 unit Q12H SQ 07/03/24 09:00 08/02/24 08:59 07/03/24 09:00 5,000 UNIT Labetalol HCl (TRANdate 20MG SYG) 10 mg Q2H PRN IV SBP GREATER THAN 160 07/02/24 19:30 08/01/24 19:29 Lactated Ringer's 1,000 ml @ 100 mls/hr Q10H IV 07/02/24 19:30 08/01/24 19:29 07/02/24 19:54 100 MLS/HR Lactulose (Constulose 20gm/ 30ml Udcup) 20 gm Q6H PRN PO CONSTIPATION 07/02/24 19:30 08/01/24 19:29 Ondansetron HCl (zoFRAN 4MG INJ) 4 mg Q6H PRN IVP NAUSEA/VOMITING 07/02/24 19:30 08/01/24 19:29 Temazepam (restORIL 15 MG CAP) 15 mg HS PRN PO INSOMNIA/SLEEP 07/02/24 19:30 08/01/24 19:29 DIAGNOSTICS / RADIOLOGY: [ ] ASSESSMENT: Acute kidney injury, GFR 22 Acute on chronic kidney disease, POA, GFR 88 on 03/2024. (02/27/2012 GFR was 85, 03/09/2012 GFR 75, 12/30/2012 GFR 74, 07/27/2013 GFR 96) Anorexia, POA, suspect from Tirzepatide Right hemorrhagic ovarian cyst measuring 8 x 14 x 14 mm, per sono on 07/02/2024, will be managed as out patient per GINGER Al Benzodiazepine positive screen on UA 07/02/2024 (Takes Xanax from [place]) History of migraine headaches on propranolol and hydroxyzine since 02/2023 Obesity, BMI 31.8 History of anxiety PLAN: Admit to medical floor. Transvaginal/pelvic Ultrasound nowcontinue LR at 100 mL/hr. (ED administered NS 2 L.) Continue to Monitor renal and liver function. Keep the patient in a euvolemic state. Avoid Nephrotoxic medications. Adjust medications according to renal function. Consult disposal operator in a.m.. Monitor electrolytes and treat accordingly. Hold home medication hydroxyzine due to in rare cases it has been associated with the acute kidney failure. Hold home medication propranolol due to that it could in directly affect kidneys function by lowering blood pressure, which may reduced blood flow to the kidneys. Hold home medication Tirzepatide due to it having been linked to rare cases of CANDIS, where the kidney sudden lose her ability to filter ways. Education on 1. Informing providers of every medication she is taking. 2. Don't buy [id number] medications from [place] without informing her PCP 1st. 3. Avoid nephrotoxic medications. P.r.n. medications for: Pain management, fever, nausea, vomiting, constipation, hypertension. As needed glucometer sticks. Oxygen as needed to keep SpO2 equal to greater than 92%. Blood pressure checks every 4 hours and as needed. GI and DVT prophylaxis. A.m. labs. Upon discharge follow up with Nephrology for acute on chronic kidney disease and OBGYN for ovarian cyst. Case discussed with Dr. Coffey, above plan was formulated ATTESTATION BY PHYSICIAN I have seen and examined the patient. I reviewed the documentation, medical decision making, and treatment plan as noted by the mid-level provider above. I agree with the findings and plan of care. PURA COFFEY MD, [facility] July 03, 2024 13:37
[2024-07-03 14:46] LABS: HEMATOCRIT 33.2 % (36-48); MEAN CORPUSCULAR HEMOGLOBIN 31.2 pg (27.0-33.0); MEAN CORPUSCULAR VOLUME 91.7 fL (79-99); RED BLOOD CELL COUNT(AUTO) 3.62 MIL/uL (4.00-5.50); RED CELL DISTRIBUTION WIDTH 11.8 % (11.0-15.5); WHITE BLOOD COUNT (AUTO) 7.4 K/uL (4.8-10.8)
[2024-07-03] MEDS: ondanSETRON 4MG INJ IVP PRN (15:09)
--- NOTE | 2024-07-03 15:19 | HMCIMG ---
Exam Type: US TRANSVAGINAL NON-OB Clinical Information: ? Hemorrhagic cyst Comparison: None Findings: Anteverted uterus, unremarkable. Normal endometrium. Complex structure seen in the right ovary 2.6 cm possible hemorrhagic cyst. Free fluid in cul-de-sac. Multiple follicles left ovary. Nabothian cysts of the cervix. IMPRESSION: Suspect an MRI cyst right ovary with free fluid throughout the cul-de-sac.
--- NOTE | 2024-07-03 18:42 | NUR ---
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 PAIN CONTROLLED AND IV FLUIDS INFUSING. FOLLOWS WITH [facility] FOR ALL HER PRIMARY CARE Addendum: 07/03/24 at 1845 by EBONI GAMEZ RN CM Amended: Links added.
[2024-07-03] MEDS: TEMAZepam 15 MG CAPSULE PO PRN (19:50)
--- NOTE | 2024-07-03 20:24 | CONS ---
REFERRING PHYSICIAN: Isaac Finley MD REASON FOR CONSULTATION: Renal failure. HISTORY OF PRESENT ILLNESS: A 33-year-old female with a history of migraines. She presented to the hospital with complaints of right lower quadrant abdominal pain. The patient was found to have ovarian cyst. The patient's laboratory values revealed an elevated BUN and creatinine. The patient denies any medical history. There is no history of diabetes mellitus or hypertension. The patient does admit to nonsteroidal use as an outpatient secondary to the pain and the patient is being seen in consultation for all of the above. PAST MEDICAL HISTORY: None. PAST SURGICAL HISTORY: None. SOCIAL HISTORY: There is no alcohol or tobacco use. FAMILY HISTORY: There is no renal disease in the family. ALLERGIES: There are no allergies. MEDICATIONS: All noted. REVIEW OF SYSTEMS: GENERAL: She is feeling somewhat improved overnight. HEENT: No change in vision. No change in hearing. CARDIOVASCULAR: There is no current chest pain or palpitations. PULMONARY: No shortness of breath. GASTROINTESTINAL: She is tolerating a diet. MUSCULOSKELETAL: Complains of weakness. NEUROLOGIC: No history of seizures or focal deficits. PSYCHIATRIC: No history of hallucination or psychosis. ENDOCRINE: No diabetes mellitus or thyroid disease. HEMATOLOGIC: No history of anemia or malignancy. PHYSICAL EXAMINATION: VITAL SIGNS: Blood pressure is 108/71, pulse in the 50s, afebrile. GENERAL: Chronically ill female, young, lying in bed on the medical floor. HEENT: Head is atraumatic. Pupils are equal, roving to light. Oropharynx is without exudate. Nares clear. NECK: There is no JVP. There is no thyromegaly. No mass. CARDIOVASCULAR: Regular. There is no S3 or S4 gallop. LUNGS: Coarse with equal thoracic movement. ABDOMEN: Soft, nondistended, nontender. EXTREMITIES: Reveal no clubbing, no cyanosis. NEUROLOGICAL: She is awake. She is alert. She is oriented. SKIN: Reveals no rash or nodule. BACK: There is no CVA tenderness or back deformities. LABORATORY DATA: BUN 23, creatinine 2.9, phosphorus is 5. Hemoglobin 10, hematocrit 31. Urinalysis is unremarkable. CT scan is noted. IMPRESSION: * Acute renal failure. * Probable interstitial nephritis. * Ovarian cyst. * Volume depletion. PLAN: The patient's creatinine is noted. The patient had been taking nonsteroidal as an outpatient. We will send off urine for eosinophils and we will continue to follow closely. The patient remains on the gentle hydration. If the creatinine improves overnight, the patient could safely be discharged from a renal standpoint. The patient is instructed to avoid all nonsteroidal medications as an outpatient. The patient does have an ovarian cyst and will eventually follow up with Gynecology as an outpatient. All labs will be repeated in the morning. The patient with multiple questions, all of which were answered. TID: [id number] RECEIPT: [id number]
[2024-07-03 21:38] LABS: HEMATOCRIT 32.7 % (36-48); MEAN CORPUSCULAR HEMOGLOBIN 31.2 pg (27.0-33.0); MEAN CORPUSCULAR HGB CONC 33.9 g/dL (32.0-36.0); MEAN CORPUSCULAR VOLUME 91.9 fL (79-99); RED BLOOD CELL COUNT(AUTO) 3.56 MIL/uL (4.00-5.50); RED CELL DISTRIBUTION WIDTH 11.7 % (11.0-15.5); WHITE BLOOD COUNT (AUTO) 7.2 K/uL (4.8-10.8)
[2024-07-04 04:19] VITALS: BP 101/53; PULSE 55; RESP 18; TEMP 97.8
[2024-07-04 05:31] LABS: BASOPHILS # (AUTO) 0.01 K/uL (0.00-0.20); BASOPHILS % (AUTO) 0.1 % (0.0-5.0); EOSINOPHILS # (AUTO) 0.07 K/uL (0.00-0.70); HEMATOCRIT 31.9 % (36-48); IMMATURE GRANULOCYTE ABSOLUTE 0.01 K/uL (0-1); LYMPHOCYTES # (AUTO) 2.5 K/uL (1.0-4.8); MEAN CORPUSCULAR HEMOGLOBIN 31.4 pg (27.0-33.0); MEAN CORPUSCULAR HGB CONC 34.2 g/dL (32.0-36.0); MEAN CORPUSCULAR VOLUME 91.9 fL (79-99); MONOCYTES # (AUTO) 0.7 K/uL (0.1-1.0); MONOCYTES % (AUTO) 10.6 % (3.0-13.0); NEUTROPHILS # (AUTO) 3.5 K/uL (1.8-7.7); NEUTROPHILS % (AUTO) 51.2 % (40.0-77.0); PLATELET COUNT (AUTO) 139 K/uL (130-400); RED BLOOD CELL COUNT(AUTO) 3.47 MIL/uL (4.00-5.50); RED CELL DISTRIBUTION WIDTH 11.9 % (11.0-15.5); WHITE BLOOD COUNT (AUTO) 6.8 K/uL (4.8-10.8)
[2024-07-04 05:56] LABS: CREATININE 2.9 mg/dL (0.5-1.0); PHOSPHORUS 5.2 mg/dL (2.5-4.9); POTASSIUM 4.5 mmol/L (3.5-5.1)
[2024-07-04 07:54] VITALS: BP 126/81; PULSE 56; RESP 18; TEMP 97.9
[2024-07-04 08:37] VITALS: O2SAT 98
--- NOTE | 2024-07-04 11:26 | DS ---
Discharge Summary Hospital Course Summary: Reason for Admission: Ms. Herring, a 33-year-old female with a history of migraine headaches and ovarian cysts, presented with right lower and upper abdominal pain radiating to the back, ongoing for three days. She also reported fatigue, unexplained weight gain, and decreased appetite due to nausea. Hospital Course: Upon evaluation in the ED, Ms. Herring was found to have acute kidney injury, dehydration, and a right ovarian cyst. Initial lab work showed a creatinine level of 2.8 and a GFR of 22, significantly decreased from a previous GFR of 88 in March 2024. Urinalysis was positive for protein and WBCs, and urine toxicology was positive for benzodiazepines, which the patient later admitted was due to taking Xanax from [place]. Imaging studies revealed a right hemorrhagic ovarian cyst measuring 17mm on CT and 8 x 14 x 14 mm on pelvic sonogram. A renal sonogram showed normal kidneys and urinary bladder. The patient received morphine, Zofran, normal saline bolus, and Toradol in the ED. Nephrology was consulted, and the impression was acute renal failure, probable interstitial nephritis, ovarian cyst, and volume depletion. The patient was advised to avoid NSAIDs and was placed on gentle hydration. Discharge Condition: Ms. Herring was discharged in stable condition after nephrology clearance, with instructions for close outpatient follow-up. Follow-Up Instructions: Follow up with nephrology for renal function monitoring. Follow up with gynecology for ovarian cyst management. Monitor fluid intake and maintain hydration. Patient Education: Ms. Herring was educated on the importance of avoiding NSAIDs and maintaining hydration. She was informed about the need for follow-up appointments and the potential implications of her ovarian cyst. Miter Operator(s): Dr. Mike Pelaez- cloth examiner hand Procedure(s): [address] [id number] IMAGING REPORT Signed PATIENT: MADINA HERRING MR#: [id number] : 1990 SEX: F AGE: 33 LOCATION: [facility] ORDER 1319 STATUS: ADM IN REPORT#: [id number] SERVICE 1317 REASON: ? Hemorrhagic cyst ORDERING PHYSICIAN: GUIDO BARKER PROCEDURE: TRNVG NON - US TRANSVAGINAL NON-OB Exam Type: US TRANSVAGINAL NON-OB Clinical Information: ? Hemorrhagic cyst Comparison: None Findings: Anteverted uterus, unremarkable. Normal endometrium. Complex structure seen in the right ovary 2.6 cm possible hemorrhagic cyst. Free fluid in cul-de-sac. Multiple follicles left ovary. Nabothian cysts of the cervix. IMPRESSION: Suspect an MRI cyst right ovary with free fluid throughout the cul-de-sac. DICTATED BY: JIMMIE MELGOZA MD DATE: 07/03/241515 ELECTRONICALLY SIGNED BY: JIMMIE MELGOZA MD DATE: 07/03/241518 [facility] [address] [place] [id number] IMAGING REPORT Signed PATIENT: MADINA HERRING MR#: [id number] : 1990 SEX: F AGE: 33 LOCATION: [facility] ORDER 20 STATUS: ADM IN REPORT#: [id number] SERVICE 19 REASON: CANDIS ORDERING PHYSICIAN: JACQUI BUCK PROCEDURE: RENAL - US RENAL SONOGRAM ULTRASOUND RENAL COMPLETE INDICATION: Acute kidney injury TECHNIQUE: Routine ultrasound of the kidneys and urinary bladder with grayscale and color Doppler imaging was performed in real-time, and subsequently made available for review. COMPARISON: No prior studies available for comparison. FINDINGS: The right kidney measures 12.0 x 4.8 x 5.5 cm. No abnormal mass demonstrated. No evidence for hydronephrosis or shadowing stone. The left kidney measures 11.8 x 4.5 x 5.1 cm. No abnormal mass demonstrated. No evidence for hydronephrosis or shadowing stone. Urinary bladder appears normal. IMPRESSION: Normal sonographic appearance of the kidneys and urinary bladder. DICTATED BY: AKYLA ROMAN MD DATE: 07/02/241956 ELECTRONICALLY SIGNED BY: KAYLA ROMAN MD DATE: 07/02/242000 [facility] [address] [place] [id number] IMAGING REPORT Signed PATIENT: MADINA HERRING MR#: [id number] : 1990 SEX: F AGE: 33 LOCATION: [facility] ORDER 1350 STATUS: REG ER REPORT#: [id number] SERVICE 1348 REASON: RIGHT LOWER ABDOMINAL PAIN. KNOWN OVARIAN CYST SEE ULTRASOUND REPORT ORDERING PHYSICIAN: NEISHA DURAN NP PROCEDURE: ABD PEL WO - CT ABDOMEN/PELVIS W/O CONTRAST CT ABDOMEN/PELVIS W/O CONTRAST HISTORY: Right lower abdominal pain COMPARISON: 03/09/2012 TECHNIQUE: Multiple sequential axial images of the abdomen and pelvis were obtained from the dome of the diaphragm through symphysis pubis. Patient was not given contrast through intravenous route. Oral contrast was not given. FINDINGS: No pleural effusion is seen bilaterally. There is no evidence of parenchymal disease or pulmonary nodule of the visualized lower lungs. Degenerative changes of the thoracolumbar spine are present. The heart is not enlarged. The liver, spleen, adrenal glands and pancreas are unremarkable. There is no evidence of hydronephrosis bilaterally. No evidence of renal stone is seen. Fecal material is seen in the colon. There are normal size retroperitoneal and mesenteric lymph nodes. No ascites is seen. No CT evidence of acute appendicitis is seen. There is right hemorrhagic ovarian cyst measuring 17 mm. Pelvic sidewalls are symmetric bilaterally. Bladder is well distended without wall thickening. IMPRESSION: 1. No acute findings. CT was performed with one or more following dose reduction techniques: automated exposure control, adjustment of the mA and kv according to patient's size, or use of a iterative reconstruction technique. DICTATED BY: JASON LYNN MD DATE: 07/02/24 1439 ELECTRONICALLY SIGNED BY: JASON LYNN MD DATE: 07/02/24 [address] [phone] IMAGING REPORT Signed PATIENT: MADINA HERRING MR#: [id number] : 1990 SEX: F AGE: 33 LOCATION: ED ORDER 1136 STATUS: REG ER REPORT#: [id number] SERVICE 1135 REASON: RIGHT ADNEXAL PAIN/THREE DAYS. ORDERING PHYSICIAN: NEISHA DURAN NP PROCEDURE: PELVLTD - US PELVIC NON-OB LIMITED US PELVIC NON-OB LIMITED HISTORY: Right adnexal pain COMPARISON: None TECHNIQUE: Transabdominal pelvic ultrasound study was performed. Specific attention is given to the right ovary. FINDINGS: There is complex cystic structure in the right ovary measuring 18 x 14 x 14 mm may be related to hemorrhagic cyst. Right ovary measures 2.5 x 2 x 3.2 cm. Flow is demonstrated in the right ovary. IMPRESSION: 1. There may be right hemorrhagic ovarian cyst measuring 18 x 14 x 14 mm. DICTATED BY: JASON LYNN MD DATE: 07/02/24 1237 ELECTRONICALLY SIGNED BY: JASON LYNN MD DATE: 07/02/24 1241 Assessment/Plan: Admitting Diagnoses: Acute kidney injury, GFR 22 Acute on chronic kidney disease, POA, GFR 88 on 03/2024. (02/27/2012 GFR was 85, 03/09/2012 GFR 75, 12/30/2012 GFR 74, 07/27/2013 GFR 96) Anorexia, POA, suspect from Tirzepatide Right hemorrhagic ovarian cyst measuring 8 x 14 x 14 mm, per sono on 07/02/2024, will be managed as out patient per [facility] Benzodiazepine positive screen on UA 07/02/2024 (Takes Xanax from [place]) History of migraine headaches on propranolol and hydroxyzine since 02/2023 Obesity, BMI 31.8 History of anxiety Discharge Diagnoses: Acute kidney injury, GFR 22 Acute on chronic kidney disease, POA, GFR 88 on 03/2024. (02/27/2012 GFR was 85, 03/09/2012 GFR 75, 12/30/2012 GFR 74, 07/27/2013 GFR 96) Probable interstitial nephritis, POA Anorexia, POA, suspect from Tirzepatide Right hemorrhagic ovarian cyst measuring 8 x 14 x 14 mm, per sono on 07/02/2024, will be managed as out patient per [facility] Benzodiazepine positive screen on UA 07/02/2024 (Takes Xanax from [place]) History of migraine headaches on propranolol and hydroxyzine since 02/2023 Obesity, BMI 31.8 History of anxiety Discharge Instructions: Follow up with PCP in 2-3 days Follow up with Nephrology in one week Home Medications: Reported Medications Alprazolam (Xanax) 0.25 Mg Tablet, 0 PO AD PRN for ANXIETY/AGITATION for 30 Days, #30 TAB 0 Refills 07/03/24 Propranolol HCl (Propranolol HCl) 40 Mg Tablet, 1 TAB PO DAILY for 30 Days, #60 TAB 0 Refills 07/02/24 Hydroxyzine HCl (Hydroxyzine HCl) 50 Mg Tablet, 50 MG PO Q6HPRN PRN for HEADACHE, TAB 07/02/24 Discontinued Reported Medications Tirzepatide (Mounjaro) 2.5 Mg/0.5 Ml Pen.injctr, 0 SQ QWEEK 07/03/24 Discontinued Scripts Cephalexin Monohydrate (Keflex) 500 Mg Cap, 500 MG PO BID for 7 Days, #14 CAP Prov:MICHELE SPENCE MD 11/07/23 Prednisone (Prednisone) 10 Mg Tab.ds.pk, 10 MG PO DAILY for 7 Days, #7 TAB Prov:MICHELE SPENCE MD 11/07/23 Continued Medications: Alprazolam (Xanax) 0.25 Mg Tablet 0 PO AD PRN for ANXIETY/AGITATION for 30 Days, #30 TAB 0 Refills Hydroxyzine HCl (Hydroxyzine HCl) 50 Mg Tablet 50 MG PO Q6HPRN PRN for HEADACHE, TAB Propranolol HCl (Propranolol HCl) 40 Mg Tablet 1 TAB PO DAILY for 30 Days, #60 TAB 0 Refills Discontinued Medications: Tirzepatide (Mounjaro) 2.5 Mg/0.5 Ml Pen.injctr 0 SQ QWEEK Time spent arranging discharge: 31-60 minutes ATTESTATION BY PHYSICIAN I have seen and examined the patient. I reviewed the documentation, medical decision making, and treatment plan as noted by the mid-level provider above. I agree with the findings and plan of care. PURA COFFEY MD, [facility] July 04, 2024 11:26
[2024-07-04 11:59] VITALS: BP 128/82; PULSE 60; RESP 18; TEMP 98
--- NOTE | 2024-07-04 12:52 | NUR ---
DISCHARGE Patient ready for discharge. Education provided including medication information, follow up information, and dietary education. Patient verbalized she will call on Friday for appointment with Dr. Pelaez. Patient verbalized understanding and all questions answered. IV removed. Patient discharged home with family.
--- NOTE | 2024-07-04 16:36 | PN ---
FOLLOWUP PROGRESS NOTE SUBJECTIVE: A 33-year-old female with essentially no past history. She presented to the hospital and was found to have significant abdominal pain. The patient was found to have an ovarian cyst. The patient had been taking nonsteroidals as an outpatient. The patient's previous laboratory values revealed a fairly normal creatinine and the patient is being seen as a followup visit for all of the above. REVIEW OF SYSTEMS: CONSTITUTIONAL: She is feeling improved. HEENT: No change in vision. No change in hearing. CARDIOVASCULAR: There is no current chest pain or palpitations. PULMONARY: No shortness of breath. GASTROINTESTINAL: The pain is improved. MUSCULOSKELETAL: Complaints of weakness. PHYSICAL EXAMINATION: VITAL SIGNS: Blood pressure 126/81, pulse in the 50s, afebrile. GENERAL: She is a chronically ill female, lying in bed on medical floor. HEENT: Head is atraumatic. Pupils are equal, roving to light. Oropharynx is without exudate. Nares clear. NECK: There is no JVP. There is no thyromegaly. No mass. CARDIOVASCULAR: Regular. There is no S3 or S4 gallop. LUNGS: Coarse with equal thoracic movement. ABDOMEN: Soft, nondistended, and nontender. EXTREMITIES: Reveal no clubbing or cyanosis. NEUROLOGICAL: She is awake. She is alert. She is oriented. SKIN: Reveals no rash or nodules. BACK: There is no CVA tenderness. No back deformities. LABORATORY DATA: BUN 23, creatinine 2.9, sodium 141, potassium 4.5. IMPRESSION: * Acute renal failure. * History of ovarian cysts. * Nonsteroidal use. * Electrolytes abnormalities. PLAN: The patient's creatinine has remained stable overnight. Urine output has been adequate. The patient had been on large amounts of nonsteroidals as an outpatient. The patient is quite anxious for discharge. The patient can safely be discharged from renal standpoint. She will follow up in the [facility] on 07/06/2024 for repeat chemistries. The patient with multiple questions, all of which were answered. TID: [id number] RECEIPT: [id number]
== END 2024-07-04 12:45 | disposition home or self-care (01) ==
LOC: EDH 11:30 → INTOOBSV 19:09 → EDHIP 19:09 → 4DH 21:16
PROVIDERS: ADMIT Hospitalist; ATTEND Hospitalist
DX: N17.9 Acute kidney failure, unspecified (principal); E86.0 Dehydration; N83.201 Unspecified ovarian cyst, right side; E66.9 Obesity, unspecified; E86.9 Volume depletion, unspecified; R63.0 Anorexia; N18.9 Chronic kidney disease, unspecified; F41.9 Anxiety disorder, unspecified; G43.909 Migraine, unspecified, not intractable, without status migrainosus; Z86.2 Personal history of diseases of the blood and blood-forming organs and certain disorders involving the immune mechanism; Z68.31 Body mass index [BMI] 31.0-31.9, adult; Z79.899 Other long term (current) drug therapy
CPT/HCPCS: 96361 ×6; 99285; 82550; 83735 ×2; 80053; 80305; 85025 ×2; 85027 ×4; 81001; 81025; 36415 ×3; 74176; 76770; 76857; 96374; 96375; 96376 ×2; 96372 ×2; 83036; 84443; 84100 ×2; 80048 ×2; 76830; G0378 ×42; J2270 ×2; J7030; J2405 ×3; J1885; J1644 ×3

== ENCOUNTER 2024-09-28 01:44 | Inpatient (IN) | payer OTHER ==
[~2024-09-28] VITALS: Ht 162.6 cm; Wt 86.2 kg
[~2024-09-28 01:44] MED LIST changes: +ALPR0.25 PO; -CEPH500B PO; +HYDR-3422 PO; -PRED10TA23 PO; +PROP40TA7 PO
--- NOTE | 2024-09-28 01:53 | ERN ---
ED Note History of Present Illness Stated Complaint: C/O ABD PAIN W/VOMITING BLOOD Chief Complaint: Abdominal Pain Time Seen by MD: 01:46 Dictation: This is a 33-year-old female who presented to the emergency room with a upper abdominal pain and vomitings blood. She stated that she had alcoholic drinks today and in the past few hours she started vomitings blood bright red in color and she had 3 episodes that really scared her and she came into the ER for further evaluation. She was admitted during month of June at which time she had epigastric pain and she had admitted to NSAID use and since then she has been taking only Tylenol for pain. She stated that 5-1/2 years ago her father after which she became an alcoholic drank heavily for 4-1/2-5 years and she quit drinking and was doing fairly well however she started drinking again today. Temperature 97.2 pulse 111 respirations 20 blood pressure 121/81 with a pulse oximetry of 97% on room air Allergies: Coded Allergies: No Known Allergies (Unverified Allergy, Unknown, 11/07/23) Home Meds Reported Medications Alprazolam (Xanax) 0.25 Mg Tablet, 0 PO AD PRN for ANXIETY/AGITATION for 30 Days, #30 TAB 0 Refills 07/03/24 Propranolol HCl (Propranolol HCl) 40 Mg Tablet, 1 TAB PO DAILY for 30 Days, #60 TAB 0 Refills 07/02/24 Hydroxyzine HCl (Hydroxyzine HCl) 50 Mg Tablet, 50 MG PO Q6HPRN PRN for HEADACHE, TAB 07/02/24 Past Medical History Past Medical History: Anxiety Surgical History: None Family History: Negative Social History: ETOH History: Not Applicable LMP: Sep 28, 2024 : 1 Para: 1 RN Note Reviewed/Agreed w/PFSH: Yes Review of System Dictation Constitutional: Negative for fever,chills, and weight loss Eyes: Negative for injury, pain,redness, and discharge ENT: Negative for injury,pain or swelling Cardiovascular: Negative for chest pain, palpitations, and edema Respiratory: Negative for shortness of breath, cough, and wheezing, Abdomen/GI: Positive for abdominal pain, and vomitings blood nausea, vomiting, denied diarrhea, and constipation Back: Negative for injury and pain : Negative for injury, bleeding and discharge MS/Extremity: Negative for injury and deformity Skin: Negative for rash, and discoloration Neuro: Negative for headache, weakness, numbness, tingling, and seizure Psych: Negative for suicide ideation, homicidal ideation, and hallucinations Initial Vital Sign VS Vital Signs Date Time Temp Pulse Resp B/P (MAP) Pulse Ox O2 Delivery O2 Flow Rate FiO2 09/28/24 01:45 97.2 111 20 121/81 97 Room Air 09/28/24 02:36 0 21 Physical Exam Dictation General: awake, alert, NAD overweight Head/Face: Normocephalic, atraumatic Eyes: PERRL, EOMI, vision at baseline ENT: oral cavity clear, TMs clear, no signs of infection Neck: Trachea midline, supple, no nuchal rigidity Cardiovascular: RRR, normal S1/S2, No MRGs, no JVD Respiratory: CTAB, no respiratory distress, No rales or wheezes Abdomen: Soft, mild tenderness in the epigastrium and right arm per quadrant, non-distended, normal bowel sounds, no guarding or rebound. Skin: Warm, dry, normal turgor, no rash no spider nevi MS/Extremity: Pulses equal, no cyanosis, neurovascular intact, FROM Neuro: COAx4, GCS 15, strength 5/5, CN 2-12 intact, normal cerebellar exam, normal gait, Psych: Normal behavior, mood, and affect normal Extremities-trace edema without any palpable cords, Homans sign is negative Results (Laboratory/Radiology) Laboratory/Radiology Laboratory Tests Test 09/28/24 01:52 09/28/24 02:15 Urine Color COLORLESS (YELLOW) Urine Appearance CLEAR (CLEAR) Urine pH 6.0 (5.0-8.0) Urine Specific [place] 1.002 (1.001-1.031) Urine Protein NEGATIVE mg/dL (NEGATIVE) Urine Glucose (UA) NEGATIVE mg/dL (NEGATIVE) Urine Ketones NEGATIVE mg/dL (NEGATIVE) Urine Occult Blood NEGATIVE (NEGATIVE) Urine Nitrate NEGATIVE (NEGATIVE) Urine Bilirubin NEGATIVE mg/dL (NEGATIVE) Urine Urobilinogen 0.2 mg/dL (0.2-1.0) Urine Leukocyte Esterase NEGATIVE Onesimo/uL Urine Opiates Screen NEGATIVE (NEGATIVE) Urine Barbiturates Screen NEGATIVE (NEGATIVE) Urine Phencyclidine Screen NEGATIVE (NEGATIVE) Urine Amphetamines Screen NEGATIVE (NEGATIVE) Urine Benzodiazepines Screen POSITIVE (NEGATIVE) H Urine Cocaine Screen NEGATIVE (NEGATIVE) Urine Marijuana (THC) Screen NEGATIVE (NEGATIVE) White Blood Count 10.4 K/uL (4.8-10.8) Red Blood Count 4.12 MIL/uL (4.00-5.50) Hemoglobin 13.1 g/dL (12.0-16.0) Hematocrit 39.1 % (36-48) Mean Corpuscular Volume 94.9 fL (79-99) Mean Corpuscular Hemoglobin 31.8 pg (27.0-33.0) Mean Corpuscular Hemoglobin Concent 33.5 g/dL (32.0-36.0) Red Cell Distribution Width 12.6 % (11.0-15.5) Platelet Count 214 K/uL (130-400) Mean Platelet Volume 10.1 fL (7.5-10.5) Immature Granulocyte % (Auto) 0.4 % (0-1) Neutrophils (%) (Auto) 50.9 % (40.0-77.0) Lymphocytes (%) (Auto) 39.3 % (21.0-51.0) Monocytes (%) (Auto) 8.2 % (3.0-13.0) Eosinophils (%) (Auto) 0.8 % (0.0-8.0) Basophils (%) (Auto) 0.4 % (0.0-5.0) Neutrophils # (Auto) 5.3 K/uL (1.8-7.7) Lymphocytes # (Auto) 4.1 K/uL (1.0-4.8) Monocytes # (Auto) 0.9 K/uL (0.1-1.0) Eosinophils # (Auto) 0.08 K/uL (0.00-0.70) Basophils # (Auto) 0.04 K/uL (0.00-0.20) Absolute Immature Granulocyte (auto 0.04 K/uL (0-1) Nucleated Red Blood Cells 0.0 % (0.0-0.19) Sodium Level 140 mmol/L (136-145) Potassium Level 3.7 mmol/L (3.5-5.1) Chloride Level 104 mmol/L (101-111) Carbon Dioxide Level 26 mmol/L (21-32) Blood Urea Nitrogen 16 mg/dL (7-18) Creatinine 0.9 mg/dL (0.5-1.0) Glomerular Filtration Rate Calc 87 mL/min (>90) Random Glucose 135 mg/dL (70-105) H Total Calcium 8.7 mg/dL (8.5-10.1) Serum Test, Qualitative NEGATIVE (NEGATIVE) Serum Alcohol 191 mg/dL (0-10) H Labs Reviewed?: Yes ED Course ED Course Orders Procedure Category Date Status Time Cbc With Differential LAB 09/28/24 Complete 01:46 Testing, LAB 09/28/24 Complete Serum Hcg 01:46 Type And Screen BBK 09/28/24 Complete 01:46 Urinalysis Profile LAB 09/28/24 Complete 01:46 Occult Blood Stool LAB 09/28/24 Logged Single Only 01:46 0.9%Nacl 1000ml (Ns PHA 09/28/24 In Process 1000ml) 02:00 Pantoprazole 40mg Inj PHA 09/28/24 Complete (Protonix 40mg Inj 02:00 Basic Metabolic Panel LAB 09/28/24 Complete 01:46 Drug Screen Urine LAB 09/28/24 Complete 02:09 Alcohol, Blood LAB 09/28/24 Complete 02:15 Ondansetron 4mg Inj PHA 09/28/24 Complete (Zofran 4mg Inj) 03:00 Morphine 2mg Syg PHA 09/28/24 Complete (Morphine 2mg Syg) 03:30 Current Medications Medications (Trade) Dose Ordered Sig/Keenan Route PRN Reason Start Time Stop Time Status Last Admin Dose Admin Morphine Sulfate (morPHINE 2MG SYG) 2 mg ONCE ONCE IVP 09/28/24 03:30 09/28/24 03:31 DC 09/28/24 03:17 Ondansetron HCl (zoFRAN 4MG INJ) 4 mg ONCE ONCE IVP 09/28/24 03:00 09/28/24 03:01 DC 09/28/24 02:42 Pantoprazole Sodium (PROTonix 40MG INJ) 80 mg ONCE ONCE IVP 09/28/24 02:00 09/28/24 02:01 DC 09/28/24 02:28 Sodium Chloride 1,000 ml @ 125 mls/hr ONCE ONCE IV 09/28/24 02:00 09/28/24 09:59 09/28/24 02:28 Vital Signs Date Time Temp Pulse Resp B/P (MAP) Pulse Ox O2 Delivery O2 Flow Rate FiO2 09/28/24 02:36 98.8 88 18 125/66 99 Room Air* 0 21 09/28/24 01:45 97.2 111 20 121/81 97 Room Air We will perform diagnostic labs, advanced imaging and administer medications according to the patient's complaint. Once the results are available, will review and personally interpreted the labs to rule out any acute life- threatening emergency the trach require immediate intervention and treatment. I will then re-evaluate the patient after treatment and diagnostic exams have return to determine whether the patient requires any further testing, can safely be discharged home or need further admission to hospital for additional treatment and evaluation. 3:00 a.m. labs reviewed CBC showed a white count of 10.4 hemoglobin 13 platelet count 214. BNP 7 with a normal limits test is negative. Alcohol level 191 PPI, hydration keep her NPO. If any drop in the hemoglobin or continues to have hematemesis then would also add Sandostatin I recommended admission to the hospital and monitoring her serial hemoglobin and GI evaluation. She is agreeable 3:45 a.m. patient accepted by Paco Velez, mid-level provider for hospitalist group for admission and observation. Currently patient has stable hemoglobin at 13. Medical Decision Making MDM Differential diagnosis: Gastritis, peptic ulcer disease, Dieulafoy's lesion, esophageal variceal bleed Rationale: Tests considered and ordered secondary to shared decision making include: labs, ECG and radiology Previous outside records reviewed: Old ER visits. Risk of complication and/or morbidity or mortality of patient management: None Medications-Per medication reconciliation Need for hospitalization: Patient does meet criteria for hospitalization. Need for emergency major/minor surgery: No There are no social concerns with this patient. Prescription drug management Prescriptions will include symptomatic care Patient's prior external medical records from other ER visits were reviewed by me as indicated. Prior testing and results from previous visits were reviewed. Prior tests were taken into account with medical decision making and resource utilization, independent historian/historians were used to obtain complete medical history. I independently interpreted the test that were performed, results were reviewed by me and considered findings on radiology if ordered. Medical management and examination interpretation discussions were had by me with other qualified healthcare professionals as indicated for the patient's care. Problem List Problem List: (1) Upper GI bleed (2) Alcohol use DX & DISP Disposition: Inpatient Decision to Admit Time: 02:09 Departure Impression: Primary Impression: Upper GI bleed Additional Impression: Alcohol use Condition: Stable Additional Instructions: Patient was informed of all the diagnostic labs and procedures conducted in the emergency room today and demonstrated understanding of the results. I personally reviewed and interpreted all the diagnostic exams performed in the ER today. The patient will be admitted to the hospital for further treatment and evaluation. Disposition-admit to facility Condition-stable/guarded Course-uncertain at this time Pain status-decreased Assessment-exam unchanged Admission Certification- I certify that the patients status is appropriate and is based on my best clinical judgment and the patient's condition as documented in the medical records Referrals: SELF,REFERRAL (PCP) ILSA CHUA MD Sep 28, 2024 01:53
[2024-09-28 02:05] LABS: APPEARANCE,URINE CLEAR (CLEAR); GLUCOSE, URINE (UA) NEGATIVE (NEGATIVE); LEUKOCYTE ESTERASE ,URINE NEGATIVE Leu/uL (NEGATIVE); NITRATE,URINE NEGATIVE (NEGATIVE); OCCULT BLOOD,URINE NEGATIVE (NEGATIVE)
[2024-09-28 02:14] LABS: ADD UA MICROSCOPIC NO
[2024-09-28] MEDS: 0.9%NACL 1000ML 1,000 ML IV ONE (02:28)
[2024-09-28 02:36] LABS: IMMATURE GRANULOCYTE ABSOLUTE 0.04 K/uL (0-1); NUCLEATED RED BLOOD CELLS 0.0 % (0.0-0.19); PLATELET COUNT (AUTO) 214 K/uL (130-400); RED BLOOD CELL COUNT(AUTO) 4.12 MIL/uL (4.00-5.50); RED CELL DISTRIBUTION WIDTH 12.6 % (11.0-15.5); WHITE BLOOD COUNT (AUTO) 10.4 K/uL (4.8-10.8)
[2024-09-28 02:43] LABS: CREATININE 0.9 mg/dL (0.5-1.0); GLOMERULAR FILTR. RATE CALC 87.0 mL/min (>90); GLUCOSE,RANDOM 135.0 mg/dL (70-105); SODIUM SERUM 140.0 mmol/L (136-145); UREA NITROGEN, BLOOD 16.0 mg/dL (7-18)
[2024-09-28 02:44] LABS: ALCOHOL, BLOOD 191.0 mg/dL (0-10)
[2024-09-28 03:19] LABS: AMPHET/METH SCREEN,URINE NEGATIVE (NEGATIVE); BARBITURATE SCREEN, URINE NEGATIVE (NEGATIVE); CANNABINOID SCREEN,URINE NEGATIVE (NEGATIVE); COCAINE SCREEN,URINE NEGATIVE (NEGATIVE)
--- NOTE | 2024-09-28 03:56 | HP ---
History of Present Illness Reason for Visit: Hematemesis History of Present Illness Ms. Robbins is a 33-year-old female that was seen and examined today on 09/28/2024. Patient is a good historian of personal health Patient reports that she came to the emergency department with a chief complaint of vomiting blood. Onset was 09/27/2024. Location is abdomen. Duration is on and off. Character is described as dark red. There was no alleviating factors. Patient believes vomiting was aggravated by drinking alcohol and she has not had alcohol in four months. Patient reports she is a former heavy alcohol user. Patient denies any associated chest pain or shortness and breath. Today in the emergency department no diagnostic radiographic imaging has been ordered, CBC is unremarkable, chemistries unremarkable, urinalysis is unremarkable. According to emergency room physician patient did have one episode of hematemesis in the emergency department that she said appeared to be consistent with blood however this was not sent to lab for testing. Emergency room physician recommended that patient be admitted with a diagnosis of GI bleed. Additionally urine toxicology is positive for benzodiazepines. Patient also had an elevated alcohol level. Past Medical History ADDITIONAL PAST MEDICAL HISTORY: [Migraines] SOCIAL HISTORY: [Negative for smoking, drug use. Positive for alcohol use.] SURGICAL HISTORY: [Denies] Review of Systems General: No Fever, No Chills, No Night Sweats, No Fatigue, No Malaise, No Appetite, No Other HEENT: No Head Aches, No Visual Changes, No Eye Pain, No Ear Pain, No Dysphasia, No Sinus Congestion, No Post Nasal Drip, No Sore Throat, No Other Pulmonary: No Dyspnea, No Cough, No Pleuritic Chest Pain, No Other Cardiovascular: No: Chest Pain, Palpitations, Orthopnea, Paroxysmal Noc. Dyspnea, Edema, Lt Headedness, Other Gastrointestinal: Nausea, Vomiting, Other (Hematemesis); No: Abdominal Pain, Diarrhea, Constipation, Melena, Hematochezia Genitourinary: No Dysuria, No Frequency, No Incontinence, No Hematuria, No Retention, No Other Musculoskeletal: No: other, neck pain, shoulder pain, arm pain, back pain, hand pain, leg pain, foot pain Skin: No Urticaria, No Rash, No Other Neurological: No: Weakness, Numbness, Incoordination, Change in speech, Confusion, Seizures, Other Allergies: Coded Allergies: No Known Allergies (Unverified Allergy, Unknown, 11/07/23) Scheduled Propranolol HCl (Propranolol HCl), 1 TAB PO DAILY, (Reported) Scheduled PRN Alprazolam (Xanax), 0 PO AD PRN for ANXIETY/AGITATION, (Reported) Hydroxyzine HCl (Hydroxyzine HCl), 50 MG PO Q6HPRN PRN for HEADACHE, (Reported) Exam Vital Signs Vital Signs Date Time Temp Pulse Resp B/P (MAP) Pulse Ox O2 Delivery O2 Flow Rate FiO2 09/28/24 02:36 98.8 88 18 125/66 99 Room Air* 0 21 General Appearance: Alert, Oriented X3, Cooperative, No acute distress HEENT: Atraumatic, EOMI Respiratory: Clear to auscultation, Normal air movement Cardiovascular: Regular rate, Regular rhythm, Normal S1, Normal S2 Abdominal: No tenderness Extremities: No clubbing, No cyanosis, No edema Skin: No rashes, No breakdown, No significant lesion Neuro: Normal speech, Strength at 5/5 X4 ext, Sensation intact, Cranial nerves 3-12 NL Psych/Mental Status: Mental status NL, Mood NL, Thoughts/Content NL Assessment/Plan ASSESSMENT: [ Suspected GI bleed, POA Acute alcohol intoxication, POA Substance misuse, benzodiazepines, POA] PLAN: [ Admit patient to medical floor as inpatient status. Keep patient NPO. Patient will be followed by Gastroenterology Service. IV fluid maintenance therapy lactated Ringer's at 75 mL/HR Check preprocedure labs, CBC, BMP, magnesium, phosphorus, PTT, UA, type and screen, EKG, CXR Check hemoglobin and hematocrit every 6 hours Transfuse packed red blood cells for hemoglobin less than 7 mg/dL Sandostatin 50 mcg IV times 1 Protonix 80 mg IV times 1 Protonix drip per hospital protocol Sandostatin drip per hospital protocol Consult patient on alcohol cessation. GI prophylaxis, Protonix drip DVT prophylaxis, Natanael's and SCDs ADVANCED CARE PLANNING 1. Which of the following were discussed? Hospice Care - Yes Therapeutic options - yes Advance Directives - Yes - patient states he does not have any advance directives in place at this time Other discussions - patient wishes to remain a full code 2. Discussed with who? Patient 3. Voluntary nature of this service was explained to the patient? Yes 4. Amount of time spent - ___16 minutes____ 5. Reviewed by Physician? (if this service was performed by NPP) Yes This document was generated in part using voice recognition software, occasional wrong word or sound alike substitutions may have occurred due to the inherent limitations of voice recognition software. Read the chart carefully and recognize using context, where the substitutions have occurred. Although every effort was made to edit the content, postal transportation clerk and typing errors may occur ATTESTATION BY PHYSICIAN I have seen and examined the patient. I reviewed the documentation, medical decision making, and treatment plan as noted by the mid-level provider above. I agree with the findings and plan of care. GLENN DURAN [facility] Sep 28, 2024 03:56
[2024-09-28] MEDS: LACTATED RINGERS 1000ML 1,000 ML IV SCH (04:21)
[2024-09-28 04:38] LABS: INR <= 0.93 (0.85-1.15)
--- NOTE | 2024-09-28 05:37 | NUR ---
PATIENT DOES NOT WANTED HER INFO TO BE SHARED WITH OTHERS. INFORM IC JOSS AND GLENN NO SHE STATED THAT SHE DOES NOT WANTED TO BE TALKED ABOUT. I HAVE REASSURED HER THAT NO DATA ABOUT HER IS BEING SHARED NOT UNLESS IT CONCERNS HER MEDICAL TREATMENT. PT LOOKS ANXIUOS AND PARANOID. I HAVE EXPLAINED TO HER HER PLAN OF TREATMENT AND GETTING A ROOM IN THE [facility] AT SOME POINT AND SHE VERBALIZES UNDERSTANDING.
--- NOTE | 2024-09-28 07:00 | NUR ---
REPORT HANDED OVER TO MARQUIS
--- NOTE | 2024-09-28 07:14 | CONS ---
GASTROENTEROLOGY CONSULTATION NOTE Date of Consultation: Sep 28, 2024 Time of Consultation: 07:11 History of Present Illness: [ This is a 33-year-old female patient who presented to the emergency room with complaints of abdominal pain and hematemesis. Per ER report patient reported having had several alcoholic drinks a few hours before she began vomiting. Patient reported being a heavy alcohol user after her father had . On admission white count is 10.4, hemoglobin 13.1, platelets 214. Chemistry significant for glucose of 135. Serum is negative. Urine toxicology positive for benzodiazepines. Serum alcohol of 181.On exam, patient is sitting in chair getting dressed. Nurse reports patient is leaving AMA. Recommend to patient she f/u with PCP and recommend further endoscopic evaluation to further assess for any pathology. She verbalized understanding and agreement. Review of Systems: CONSTITUTIONAL: No malaise or change in sensation of wellbeing. ENMT: No rhinorrhea, otorrhea, sinus pain, ear ache. CARDIOVASCULAR: No angina, palpitations, orthopnea or paroxysmal dyspnea. RESPIRATORY: No SOB. GASTROINTESTINAL: No abdominal pain, nausea, vomiting, diarrhea, hematemesis, melena or change in the patient's habitual bowel movements consistency/number. GENITOURINARY: No dysuria, hematuria or change in bladder continence. MUSCULOSKELETAL: No new muscle pain or decrease in muscular strength. No new joint swelling, redness or tenderness. SKIN: No new rash. Past Medical History [Migraines] SOCIAL HISTORY: [Negative for smoking, drug use. Positive for alcohol use.] SURGICAL HISTORY: [Denies] Coded Allergies: No Known Allergies (Unverified Allergy, Unknown, 11/07/23) Physical Exam: GEN: Awake, alert, oriented in person, time and place, and in no acute distress. HEENT: No rhinorrhea. Oral pharyngeal mucosa is pink, moist and within normal limits. NEURO: Alert and oriented to name, place and person. Normal speech. Vital Sign (Last 24 Hours) 09/28/24 06:35 Temp 98.4 Pulse 72 Resp 20 B/P (MAP) 120/60 Pulse Ox 98 O2 Delivery Room Air* O2 Flow Rate 0 FiO2 21 Laboratory: [ ] Laboratory: Test 09/28/24 02:18 09/28/24 02:15 09/28/24 01:52 Range/Units Prothrombin Time 9.9 9.6-11.6 SEC Prothromb Time International Ratio <= 0.93 0.85-1.15 Activated Partial Thromboplast Time 29.1 26.3-35.5 SEC White Blood Count 10.4 4.8-10.8 K/uL Red Blood Count 4.12 4.00-5.50 MIL/uL Hemoglobin 13.1 12.0-16.0 g/dL Hematocrit 39.1 36-48 % Mean Corpuscular Volume 94.9 79-99 fL Mean Corpuscular Hemoglobin 31.8 27.0-33.0 pg Mean Corpuscular Hemoglobin Concent 33.5 32.0-36.0 g/dL Red Cell Distribution Width 12.6 11.0-15.5 % Platelet Count 214 130-400 K/uL Mean Platelet Volume 10.1 7.5-10.5 fL Immature Granulocyte % (Auto) 0.4 0-1 % Neutrophils (%) (Auto) 50.9 40.0-77.0 % Lymphocytes (%) (Auto) 39.3 21.0-51.0 % Monocytes (%) (Auto) 8.2 3.0-13.0 % Eosinophils (%) (Auto) 0.8 0.0-8.0 % Basophils (%) (Auto) 0.4 0.0-5.0 % Neutrophils # (Auto) 5.3 1.8-7.7 K/uL Lymphocytes # (Auto) 4.1 1.0-4.8 K/uL Monocytes # (Auto) 0.9 0.1-1.0 K/uL Eosinophils # (Auto) 0.08 0.00-0.70 K/uL Basophils # (Auto) 0.04 0.00-0.20 K/uL Absolute Immature Granulocyte (auto 0.04 0-1 K/uL Nucleated Red Blood Cells 0.0 0.0-0.19 % Sodium Level 140 136-145 mmol/L Potassium Level 3.7 3.5-5.1 mmol/L Chloride Level 104 101-111 mmol/L Carbon Dioxide Level 26 21-32 mmol/L Blood Urea Nitrogen 16 7-18 mg/dL Creatinine 0.9 0.5-1.0 mg/dL Glomerular Filtration Rate Calc 87 >90 mL/min Random Glucose 135 H 70-105 mg/dL Total Calcium 8.7 8.5-10.1 mg/dL Serum Test, Qualitative NEGATIVE NEGATIVE Serum Alcohol 191 H 0-10 mg/dL Urine Color COLORLESS YELLOW Urine Appearance CLEAR CLEAR Urine pH 6.0 5.0-8.0 Urine Specific [place] 1.002 1.001-1.031 Urine Protein NEGATIVE NEGATIVE mg/dL Urine Glucose (UA) NEGATIVE NEGATIVE mg/dL Urine Ketones NEGATIVE NEGATIVE mg/dL Urine Occult Blood NEGATIVE NEGATIVE Urine Nitrate NEGATIVE NEGATIVE Urine Bilirubin NEGATIVE NEGATIVE mg/dL Urine Urobilinogen 0.2 0.2-1.0 mg/dL Urine Leukocyte Esterase NEGATIVE NEGATIVE Onesimo/uL Urine Opiates Screen NEGATIVE NEGATIVE Urine Barbiturates Screen NEGATIVE NEGATIVE Urine Phencyclidine Screen NEGATIVE NEGATIVE Urine Amphetamines Screen NEGATIVE NEGATIVE Urine Benzodiazepines Screen POSITIVE H NEGATIVE Urine Cocaine Screen NEGATIVE NEGATIVE Urine Marijuana (THC) Screen NEGATIVE NEGATIVE Current Medications Medications (Trade) Dose Ordered Sig/Keenan Route PRN Reason Start Time Stop Time Status Last Admin Dose Admin Acetaminophen (TYLenol 325MG TAB) 650 mg Q6H PRN PO TEMPERATURE GREATER THAN 101.5 09/28/24 04:00 10/28/24 03:59 Acetaminophen (TYLenol 650MG SUPPOSITORY) 650 mg Q6H PRN RC MILD PAIN (1-3) 09/28/24 04:00 10/28/24 03:59 Hydralazine HCl (APRESOLine 20MG INJ) 10 mg Q6H PRN IV For:SBP above 160;DBP above 90 09/28/24 04:00 10/28/24 03:59 Lactated Ringer's 1,000 ml @ 75 mls/hr [id number] IV 09/28/24 04:00 10/28/24 03:59 09/28/24 04:21 75 MLS/HR Morphine Sulfate (morPHINE 2MG SYG) 2 mg Q4H PRN IVP SEVERE PAIN (7-10) 09/28/24 04:00 10/05/24 03:59 Octreotide Acetate 1250 mcg/ Sodium Chloride 250 ml @ 0 mls/hr PROTOCOL IV 09/28/24 04:00 10/28/24 03:59 09/28/24 05:18 5 MLS/HR Ondansetron HCl (zoFRAN 4MG INJ) 4 mg Q6H PRN IV NAUSEA/VOMITING 09/28/24 04:00 10/28/24 03:59 Pantoprazole Sodium 80 mg/ Sodium Chloride 100 ml @ 10 mls/hr Q10H IV 09/28/24 04:00 10/28/24 03:59 09/28/24 05:18 10 MLS/HR Diagnostics / Radiology: [COPY/PASTE HERE IF NO REPORTS PLEASE DELETE SECTION] Assessment: [ Hematemesis Concern for GI bleed Alcohol abuse] Plan: [ Clear fluids today Npo after midnight Plan for EGD in am.---Patient declined exam and left AMA. Thank you for this consult. ] SAMARA ARTHUR BARK SKINNER Sep 28, 2024 07:14
[2024-09-28 08:30] VITALS: O2SAT 98
--- NOTE | 2024-09-28 08:54 | EKG ---
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
--- NOTE | 2024-09-28 09:45 | NUR ---
DCP:HOME Pt currently lives at home with her sps and son. Pt does not report any insecurities with food, custodial, and/or utilities. Pt does not have any DME, home health, or provider services. Pt is able to complete ADLs independently. PCP is Dr. Arnol Live and uses [facility] for any RX needs. At [place] pt will want to go home and family can assist with transportation. Addendum: 09/28/24 at 0946 by ALBERTO RIGGS SS Amended: Links added.
--- NOTE | 2024-09-28 10:46 | PN ---
[facility] PROGRESS NOTE Date of Service: Sep 28, 2024 Time of Service: 10:44 SUBJECTIVE: 09/28/2024: Ms Robbins, a 33 year old female with PMH of Migraine, Alcohol abuse came to [facility] on 09/28/24 with a chief complaint of vomiting blood. She informs she had this episode after drinking 2 seltzers associated with abdominal pain. Today on bedside examination the patient appeared sleepy, tired and have jitters. She reports using alprazolam 2 mg 2-3 times a day depending on her need for sleep and anxiety. She expresses no abdominal pain, nausea or melena today. Her labs show hemoglobin of 13.1 and normal electrolytes. She tested positive for benzodiazepines and alcohol. She is pending on GI consult and EGD is planned for tomorrow. She is on clear liquids in the day and NPO midnight. We ordered alcohol withdrawal treatment protocol, thiamine, folic acid, multivitamins, alprazolam 0.5 mg b.i.d. today. At 2 in the afternoon the patient had severe withdrawal symptoms and requested to go against medical advice. We have talked to her and explained the plan for her and she has verbally agreed to stay and told she would give it a try. REVIEW OF SYSTEMS CONSTITUTIONAL: Appears anxious, has itching, Denies fevers, chills, or night sweats. No unintentional weight loss reported. NEUROLOGICAL: Denies headache, amaurosis fugax, motor weakness, sensory deficit, vertigo/spinning sensation, gait abnormalities, or tremors. ENT: No hearing loss, otalgia, otorrhea, rhinitis, rhinorrhea, hoarseness, or sore throat. CARDIOVASCULAR: Denies any exertional angina, dyspnea on exertion, orthopnea, paroxysmal nocturnal dyspnea, palpitations, life-threatening arrhythmias, claudication. PULMONARY: Denies any shortness of breath, cough, phlegm/sputum, hemoptysis, pleuritic chest pain. SLEEP: Denies morning headaches, daytime somnolence or napping. Denies difficulty falling asleep, staying asleep, waking from sleep. Denies knowledge of snoring. GASTROINTESTINAL: Denies any type of dysphagia to either liquids or solids. Denies nausea, vomiting, pyrosis, early satiety, abdominal pain, diarrhea, constipation, or changes in stool consistency or caliber. Denies coffee-ground emesis, hematemesis, hematochezia, or melanotic stools. GENITOURINARY: Denies frequency, urgency, nocturia, hematuria or incontinence (Storage/Irritative symptoms.) Low urinary stream, straining to void, urinary intermittency or hesitancy, splitting of the voiding stream, terminal dribbling. ENDOCRINOLOGIC: Denies polyuria, polydipsia, polyphagia or heat/cold intolerances. HEMATOLOGIC: Denies thrombophilia/previous clots, or coagulopathy/bleeding disorders. ONCOLOGIC: Denies personal history of malignancy. DERMATOLOGIC: Denies rashes or pruritus. PSYCHIATRIC: Appears to Hear voices, Denies any suicidal or homicidal ideation. PHYSICAL EXAM GENERAL APPEARANCE: The patient is awake, alert, and oriented, in no acute cardiopulmonary distress. NEUROLOGICAL: Cranial nerves II-XII grossly intact. Motor is 5/5 in bilateral upper and lower extremities proximal to distal. No sensory deficits. HEENT: Face is symmetric. Pupils are equal and reactive. Extraocular movements are intact. NECK: Supple. No JVD. No thyromegaly. No submental, submandibular, pre-/postauricular, occipital or supraclavicular lymphadenopathy. CHEST: Normal chest expansion. No Telemetry. LUNGS: Absence of any rales, rhonchi or any wheezing. CARDIOVASCULAR: Regular. S1 and S2 normal. No appreciable rubs, murmurs or gallops. ABDOMEN: Soft, nontender, and nondistended. There is no rebound, voluntary guarding, or rigidity. : Deferred. No Boyd. EXTREMITIES: Non-edematous and not cyanotic. No clubbing. Good capillary refill. SKIN: No skin breakdown. Vital Signs (last 8hr) Date Time Temp Pulse Resp B/P (MAP) Pulse Ox O2 Delivery O2 Flow Rate FiO2 09/28/24 07:33 87 18 110/59 97 Room Air* 0 21 09/28/24 06:35 98.4 72 20 120/60 98 Room Air* 0 21 09/28/24 05:34 98.8 75 20 115/62 98 Room Air* 0 21 LABS: Laboratory: Test 09/28/24 07:58 09/28/24 02:18 09/28/24 02:15 09/28/24 01:52 Range/Units Hemoglobin 13.1 12.0-16.0 g/dL Hematocrit 39.2 36-48 % Prothrombin Time 9.9 9.6-11.6 SEC Prothromb Time International Ratio <= 0.93 0.85-1.15 Activated Partial Thromboplast Time 29.1 26.3-35.5 SEC White Blood Count 10.4 4.8-10.8 K/uL Red Blood Count 4.12 4.00-5.50 MIL/uL Mean Corpuscular Volume 94.9 79-99 fL Mean Corpuscular Hemoglobin 31.8 27.0-33.0 pg Mean Corpuscular Hemoglobin Concent 33.5 32.0-36.0 g/dL Red Cell Distribution Width 12.6 11.0-15.5 % Platelet Count 214 130-400 K/uL Mean Platelet Volume 10.1 7.5-10.5 fL Immature Granulocyte % (Auto) 0.4 0-1 % Neutrophils (%) (Auto) 50.9 40.0-77.0 % Lymphocytes (%) (Auto) 39.3 21.0-51.0 % Monocytes (%) (Auto) 8.2 3.0-13.0 % Eosinophils (%) (Auto) 0.8 0.0-8.0 % Basophils (%) (Auto) 0.4 0.0-5.0 % Neutrophils # (Auto) 5.3 1.8-7.7 K/uL Lymphocytes # (Auto) 4.1 1.0-4.8 K/uL Monocytes # (Auto) 0.9 0.1-1.0 K/uL Eosinophils # (Auto) 0.08 0.00-0.70 K/uL Basophils # (Auto) 0.04 0.00-0.20 K/uL Absolute Immature Granulocyte (auto 0.04 0-1 K/uL Nucleated Red Blood Cells 0.0 0.0-0.19 % Sodium Level 140 136-145 mmol/L Potassium Level 3.7 3.5-5.1 mmol/L Chloride Level 104 101-111 mmol/L Carbon Dioxide Level 26 21-32 mmol/L Blood Urea Nitrogen 16 7-18 mg/dL Creatinine 0.9 0.5-1.0 mg/dL Glomerular Filtration Rate Calc 87 >90 mL/min Random Glucose 135 H 70-105 mg/dL Total Calcium 8.7 8.5-10.1 mg/dL Serum Test, Qualitative NEGATIVE NEGATIVE Serum Alcohol 191 H 0-10 mg/dL Urine Color COLORLESS YELLOW Urine Appearance CLEAR CLEAR Urine pH 6.0 5.0-8.0 Urine Specific [place] 1.002 1.001-1.031 Urine Protein NEGATIVE NEGATIVE mg/dL Urine Glucose (UA) NEGATIVE NEGATIVE mg/dL Urine Ketones NEGATIVE NEGATIVE mg/dL Urine Occult Blood NEGATIVE NEGATIVE Urine Nitrate NEGATIVE NEGATIVE Urine Bilirubin NEGATIVE NEGATIVE mg/dL Urine Urobilinogen 0.2 0.2-1.0 mg/dL Urine Leukocyte Esterase NEGATIVE NEGATIVE Onesimo/uL Urine Opiates Screen NEGATIVE NEGATIVE Urine Barbiturates Screen NEGATIVE NEGATIVE Urine Phencyclidine Screen NEGATIVE NEGATIVE Urine Amphetamines Screen NEGATIVE NEGATIVE Urine Benzodiazepines Screen POSITIVE H NEGATIVE Urine Cocaine Screen NEGATIVE NEGATIVE Urine Marijuana (THC) Screen NEGATIVE NEGATIVE Current Medications Medications (Trade) Dose Ordered Sig/Keenan Route PRN Reason Start Time Stop Time Status Last Admin Dose Admin Acetaminophen (TYLenol 325MG TAB) 650 mg Q6H PRN PO TEMPERATURE GREATER THAN 101.5 09/28/24 04:00 10/28/24 03:59 Acetaminophen (TYLenol 650MG SUPPOSITORY) 650 mg Q6H PRN RC MILD PAIN (1-3) 09/28/24 04:00 10/28/24 03:59 Hydralazine HCl (APRESOLine 20MG INJ) 10 mg Q6H PRN IV For:SBP above 160;DBP above 90 09/28/24 04:00 10/28/24 03:59 Lactated Ringer's 1,000 ml @ 75 mls/hr [id number] IV 09/28/24 04:00 10/28/24 03:59 09/28/24 04:21 75 MLS/HR Morphine Sulfate (morPHINE 2MG SYG) 2 mg Q4H PRN IVP SEVERE PAIN (7-10) 09/28/24 04:00 10/05/24 03:59 Octreotide Acetate 1250 mcg/ Sodium Chloride 250 ml @ 0 mls/hr PROTOCOL IV 09/28/24 04:00 10/28/24 03:59 09/28/24 05:18 5 MLS/HR Ondansetron HCl (zoFRAN 4MG INJ) 4 mg Q6H PRN IV NAUSEA/VOMITING 09/28/24 04:00 10/28/24 03:59 Pantoprazole Sodium 80 mg/ Sodium Chloride 100 ml @ 10 mls/hr Q10H IV 09/28/24 04:00 10/28/24 03:59 09/28/24 05:18 10 MLS/HR DIAGNOSTICS / RADIOLOGY: [ ] ASSESSMENT: Suspected alcohol withdrawal Suspected GI bleed, POA Acute alcohol intoxication, POA Substance misuse, benzodiazepines, POA PLAN: Alcohol withdrawal, acute alcohol intoxication(POA) * Alcohol level 191 * Start Alcohol withdrawal treatment protocol. CIWA Score 19 today * Document alcohol withdrawal score treatment and assessment of response on the CIWA-Ar flow sheet paper. * Start thiamine 100 mg IM Daily * Start multivitamin tablet 1 tab PO daily * Start folic acid 1 mg PO daily * Start alprazolam 0.5 mg BID and plan to gradually taper * Monitor symptoms * Instruct pharmacy to discontinue all pre-existing sedation orders upon changes to alcohol withdrawal scores Suspected GI bleed, POA * Stop Octreotide * Stop Protonix 80 mg injection * Clear fluids today and NPO after midnight * GI consult pending today the ICU * Plan for EGD tomorrow morning. Substance misuse, benzodiazepines, POA * Start alprazolam 0.5 mg PO BID * Plan to gradually taper * Maintain proper hydration, sleep hygiene, nutritional support GI prophylaxis: Protonix drip ATTESTATION BY PHYSICIAN I have seen and examined the patient. I reviewed the documentation, medical decision making, and treatment plan as noted by the resident provider above. I agree with the findings and plan of care. Shane Gómez MD, BHAVANI MD Sep 28, 2024 10:45
[2024-09-28] MEDS ORDERED: PHARMACY COMMUNICATION MISC PRN (11:00)
--- NOTE | 2024-09-28 11:31 | NUR ---
SW met with pt in reference to alcohol abuse resources, pt stated that she does not feel that her drinking is a problem in her life. She states that she has had "difficult life situations" that drinking became worse however states that she has a lot of time that she does not drink. Pt refused the community resources at this time.
[2024-09-28 12:00] VITALS: BP 106/52; PULSE 67; RESP 16; TEMP 97.8
[2024-09-28] MEDS ORDERED: COMPOUND IV REFRIGERATED 1 EACH IVSOLN MISC PRN (12:30)
[2024-09-28 16:00] VITALS: BP 114/76; PULSE 59; RESP 18; TEMP 97.9
--- NOTE | 2024-09-28 18:00 | NUR ---
AMA conversation Patient requested to sign out AMA. It was explained in detail the reason she is here and what her risks are upon returning home. Patient acknowledges the risk and states that she will follow up with with primary care provider to be referred to GI for further work up. Patient signed the AMA paperwork and both the charge nurse and primary care team were notified. All three peripheral IVs were removed with incident. Patient declined a wheelchair to leave and walked down by herself.
--- NOTE | 2024-09-28 19:12 | DS ---
Discharge Summary Hospital Course Summary: Ms Robbins, a 33-year-old female with past medical history of migraine, alcohol use, chronic Benzodiazepine use came to [facility] ED on 09/27/2024 with a chief compla int of vomiting blood aggravated by alcohol. Initial labs including CBC chemistries and urine analysis is unremarkable. According to emergency room physician patient did have 1 episode of hematemesis in the ED that she said appeared to be consistent with blood at home. Urine toxicology showed positive for benzodiazepines and elevated alcohol level of 191. In the ED she was given pantoprazole 80 mg IV once, Protonix drip, octreotide 50 mcg IV once, morphine 2 g IV once. She was hospitalized for GI consultation and do EGD to explore the cause of bloody vomiting. Upon hospitalization she is continued on Protonix drip, GI was consulted, and EGD was scheduled for tomorrow. She was kept on clear liquid diet and plan for NPO overnight. She is started on Xanax 0.5 mg for her anxiety. In the afternoon she developed withdrawal symptoms like severe anxiety, itching, auditory hallucinations, jitteriness and demanded to go against medical advise. We consulted her and explain her plan of treatment in detail. She expressed understanding and said she will give it a try to stay. We started alcohol withdrawal treatment protocol after calculating CIWA score of 19 on her. She was started on Librium. The patient was alert and stable but she made a decisio n to go against medical advice. The patient the patient signed out against medical advice from the ER. As per the primary nurse, the patient does not wish to continue any treatment at this time and is refusing to stay and complete evaluation and disposition. The patient is fully aware of all risks and benefits of leaving against medical advise. Possible benefits include correction of the current medical condition and improvement of symptoms. However, the patient was advised that possible risks of leaving against medical advice include worsening of the current medical condition, including or causing the . The patient verbalized understanding of the risks and benefits discussed. Despite this, the patient signed out against medical advice. Actuarial Internship(s): Dr Amanda Barnard MD [facility] [address] [place] [place] [id number] GASTROENTEROLOGY CONSULTATION NOTE Date of Consultation: Sep 28, 2024 Time of Consultation: 07:11 History of Present Illness: [ This is a 33-year-old female patient who presented to the emergency room with complaints of abdominal pain and hematemesis. Per ER report patient reported having had several alcoholic drinks a few hours before she be lyssa vomiting. Patient reported being a heavy alcohol user after her father had . On admission white count is 10.4, hemoglobin 13.1, platelets 214. Chemistry significant for glucose of 135. Serum is negative. Urine toxicology positive for benzodiazepines. Serum alcohol of 181. ] Review of Systems: CONSTITUTIONAL: No malaise or change in sensation of wellbeing. ENMT: No rhinorrhea, otorrhea, sinus pain, ear ache. CARDIOVASCULAR: No angina, palpitations, orthopnea or paroxysmal dyspnea. RESPIRATORY: No SOB. GASTROINTESTINAL: No abdominal pain, nausea, vomiting, diarrhea, hematemesis, melena or change in the patient's habitual bowel movements consistency/number. GENITOURINARY: No dysuria, hematuria or change in bladder continence. MUSCULOSKELETAL: No new muscle pain or decrease in muscular strength. No new joint swelling, redness or tenderness. SKIN: No new rash. Past Medical History [Migraines] SOCIAL HISTORY: [Negative for smoking, drug use. Positive for alcohol use.] SURGICAL HISTORY: [Denies] Coded Allergies: No Known Allergies (Unverified Allergy, Unknown, 11/07/23) Physical Exam: GEN: Awake, alert, oriented in person, time and place, and in no acute distress. HEENT: No sinus tenderness. Tympanic membranes were not examined. No rhinorrhea. Oral pharyngeal mucosa is pink, moist and within normal limits. Neck is supple with no cervical lymphadenopathy, thyromegaly or JVD. CHEST: Inspection, palpation and percussion of the chest were unremarkable. Lung auscultation revealed normal breath sounds bilaterally. CARDIAC: PMI is within normal limits. Heart sounds are regular. Normal S1, S2. No gallop or murmur. ABD: Soft, non-tender and not distended. No peritoneal signs on palpation. No organomegaly. Normal bowel sounds. EXT: No cyanosis or clubbing. No edema. SKIN: Intact. No rashes. JOINTS: No evidence of synovitis or acute arthritis. NEURO: Alert and oriented to name, place and person. Cranial nerve examination is unremarkable. No focal motor deficits. Normal speech. Gait is normal. Strength is normal. Vital Sign (Last 24 Hours) 09/28/24 06:35 Temp 98.4 Pulse 72 Resp 20 B/P (MAP) 120/60 Pulse Ox 98 O2 Delivery Room Air* O2 Flow Rate 0 FiO2 21 Laboratory: [ ] Laboratory: Test 09/28/24 02:18 09/28/24 02:15 09/28/24 01:52 Range/Units Prothrombin Time 9.9 9.6-11.6 SEC Prothromb Time International Ratio <= 0.93 0.85-1.15 Activated Partial Thromboplast Time 29.1 26.3-35.5 SEC White Blood Count 10.4 4.8-10.8 K/uL Red Blood Count 4.12 4.00-5.50 MIL/uL Hemoglobin 13.1 12.0-16.0 g/dL Hematocrit 39.1 36-48 % Mean Corpuscular Volume 94.9 79-99 fL Mean Corpuscular Hemoglobin 31.8 27.0-33.0 pg Mean Corpuscular Hemoglobin Concent 33.5 32.0-36.0 g/dL Red Cell Distribution Width 12.6 11.0-15.5 % Platelet Count 214 130-400 K/uL Mean Platelet Volume 10.1 7.5-10.5 fL Immature Granulocyte % (Auto) 0.4 0-1 % Neutrophils (%) (Auto) 50.9 40.0-77.0 % Lymphocytes (%) (Auto) 39.3 21.0-51.0 % Monocytes (%) (Auto) 8.2 3.0-13.0 % Eosinophils (%) (Auto) 0.8 0.0-8.0 % Basophils (%) (Auto) 0.4 0.0-5.0 % Neutrophils # (Auto) 5.3 1.8-7.7 K/uL Lymphocytes # (Auto) 4.1 1.0-4.8 K/uL Monocytes # (Auto) 0.9 0.1-1.0 K/uL Eosinophils # (Auto) 0.08 0.00-0.70 K/uL Basophils # (Auto) 0.04 0.00-0.20 K/uL Absolute Immature Granulocyte (auto 0.04 0-1 K/uL Nucleated Red Blood Cells 0.0 0.0-0.19 % Sodium Level 140 136-145 mmol/L Potassium Level 3.7 3.5-5.1 mmol/L Chloride Level 104 101-111 mmol/L Carbon Dioxide Level 26 21-32 mmol/L Blood Urea Nitrogen 16 7-18 mg/dL Creatinine 0.9 0.5-1.0 mg/dL Glomerular Filtration Rate Calc 87 >90 mL/min Random Glucose 135 H 70-105 mg/dL Total Calcium 8.7 8.5-10.1 mg/dL Serum Test, Qualitative NEGATIVE NEGATIVE Serum Alcohol 191 H 0-10 mg/dL Urine Color COLORLESS YELLOW Urine Appearance CLEAR CLEAR Urine pH 6.0 5.0-8.0 Urine Specific [place] 1.002 1.001-1.031 Urine Protein NEGATIVE NEGATIVE mg/dL Urine Glucose (UA) NEGATIVE NEGATIVE mg/dL Urine Ketones NEGATIVE NEGATIVE mg/dL Urine Occult Blood NEGATIVE NEGATIVE Urine Nitrate NEGATIVE NEGATIVE Urine Bilirubin NEGATIVE NEGATIVE mg/dL Urine Urobilinogen 0.2 0.2-1.0 mg/dL Urine Leukocyte Esterase NEGATIVE NEGATIVE Onesimo/uL Urine Opiates Screen NEGATIVE NEGATIVE Urine Barbiturates Screen NEGATIVE NEGATIVE Urine Phencyclidine Screen NEGATIVE NEGATIVE Urine Amphetamines Screen NEGATIVE NEGATIVE Urine Benzodiazepines Screen POSITIVE H NEGATIVE Urine Cocaine Screen NEGATIVE NEGATIVE Urine Marijuana (THC) Screen NEGATIVE NEGATIVE Current Medications Medications (Trade) Dose Ordered Sig/Keenan Route PRN Reason Start Time Stop Time Status Last Admin Dose Admin Acetaminophen (TYLenol 325MG TAB) 650 mg Q6H PRN PO TEMPERATURE GREATER THAN 101.5 09/28/24 04:00 10/28/24 03:59 Acetaminophen (TYLenol 650MG SUPPOSITORY) 650 mg Q6H PRN RC MILD PAIN (1-3) 09/28/24 04:00 10/28/24 03:59 Hydralazine HCl (APRESOLine 20MG INJ) 10 mg Q6H PRN IV For:SBP above 160;DBP above 90 09/28/24 04:00 10/28/24 03:59 Lactated Ringer's 1,000 ml @ 75 mls/hr [id number] IV 09/28/24 04:00 10/28/24 03:59 09/28/24 04:21 75 MLS/HR Morphine Sulfate (morPHINE 2MG SYG) 2 mg Q4H PRN IVP SEVERE PAIN (7-10) 09/28/24 04:00 10/05/24 03:59 Octreotide Acetate 1250 mcg/ Sodium Chloride 250 ml @ 0 mls/hr PROTOCOL IV 09/28/24 04:00 10/28/24 03:59 09/28/24 05:18 5 MLS/HR Ondansetron HCl (zoFRAN 4MG INJ) 4 mg Q6H PRN IV NAUSEA/VOMITING 09/28/24 04:00 10/28/24 03:59 Pantoprazole Sodium 80 mg/ Sodium Chloride 100 ml @ 10 mls/hr Q10H IV 09/28/24 04:00 10/28/24 03:59 09/28/24 05:18 10 MLS/HR Diagnostics / Radiology: [COPY/PASTE HERE IF NO REPORTS PLEASE DELETE SECTION] Assessment: [ Hematemesis Concern for GI bleed Alcohol abuse] Plan: [ Clear fluids today Npo after midnight Plan for EGD in am. Please call with questions,concerns, and ruiz ein clinical status Thank you for this consult. ] SAMARA ARTHUR NP Sep 28, 2024 07:14 Electronically Signed by: Electronically Co-Signed by: Assessment/Plan: DISCHARGE DIAGNOSIS Alcohol withdrawal Suspected GI bleed, POA Acute alcohol intoxication, POA Substance misuse, benzodiazepines, POA ASSESSMENT: Discharge Instructions: Limit or stop alcohol intake as it worsens the GI bleeding risk and liver injury Do not stop benzodiazepine use abruptly; taper gradually only under medical supervision to prevent dangerous withdrawal and never attempt to taper on your own Go to ED or call 911 immediately if there are severe tremors, confusion, hallucinations, chest pain, seizures, bloody vomiting, severe melena. Follow up with primary care physician in 3 days Follow up with potato picker in 1-2 weeks for elective EGD procedure Home Medications: Reported Medications Alprazolam (Xanax) 0.25 Mg Tablet, 0 PO AD PRN for ANXIETY/AGITATION for 30 Days, #30 TAB 0 Refills 07/03/24 Propranolol HCl (Propranolol HCl) 40 Mg Tablet, 1 TAB PO DAILY for 30 Days, #60 TAB 0 Refills 07/02/24 Hydroxyzine HCl (Hydroxyzine HCl) 50 Mg Tablet, 50 MG PO Q6HPRN PRN for HEADACHE, TAB 07/02/24 Time spent arranging discharge: 1-30 minutes ATTESTATION BY PHYSICIAN I have seen and examined the patient. I reviewed the documentation, medical decision making, and treatment plan as noted by the resident provider above. I agree with the findings and plan of care. VAMSHI HAJI MD, BHAVANI MD Sep 28, 2024 19:12
--- NOTE | 2024-09-28 23:23 | HMCIMG ---
EXAM: CR Chest, single view CLINICAL HISTORY: Preprocedural COMPARISON: None FINDINGS: The lungs show no infiltrate or other acute findings. No pleural effusion or pneumothorax. The cardiomediastinal silhouette is within normal limits. No acute osseous abnormality. IMPRESSION: No acute cardiopulmonary pathology is evident. /[place]
[2024-09-29] MEDS ORDERED: THIAMINE HCL 100 MG/ML 2ML VIAL IM SCH (09:00)
[2024-09-29] MEDS ORDERED: MULTIVITAMIN TABLET PO SCH (09:00)
== END 2024-09-28 18:30 | disposition left against medical advice (07) | DRG 378 ==
LOC: EDH 01:44 → EDHIP 03:46 → EEVIPCON 03:46 → 3BH 07:35
PROVIDERS: ADMIT Internal Medicine; ATTEND Internal Medicine
DX: K92.0 Hematemesis (principal); F10.139 Alcohol abuse with withdrawal, unspecified; Y90.6 Blood alcohol level of 120-199 mg/100 ml; F41.9 Anxiety disorder, unspecified; F10.129 Alcohol abuse with intoxication, unspecified; Z53.29 Procedure and treatment not carried out because of patient's decision for other reasons; G43.909 Migraine, unspecified, not intractable, without status migrainosus; Z79.899 Other long term (current) drug therapy
CPT/HCPCS: 36415; 71045; 80048; 80305; 81003; 84703; 85014; 85018; 85025; 85610; 85730; 86850; 86900; 86901; 93005; 99285; G0378; J2270; J2354; J2405; J2470; J7050